=== PATIENT | male | born 1935 | race African-American/Black ===

== ENCOUNTER → 2017-01-04 | Outpatient (CLI) | payer MEDICARE, OTHER ==
[2017-01-04 10:00] LABS: HEMATOCRIT 36.7 % (37.9-51.0); HEMOGLOBIN 12.1 g/dL (13.5-17.0); HGB HCT DIFFERENCE -0.4; MEAN CORPUSCULAR HEMOGLOBIN 29.1 pg (27.0-33.4); MEAN CORPUSCULAR HGB CONC 32.9 g/dL (32.0-36.0); MEAN CORPUSCULAR VOLUME 88 fl (80-97); RED BLOOD COUNT 4.16 10^6/uL (4.35-5.55); WHITE BLOOD COUNT 4.9 10^3/uL (4.0-10.5)
[2017-01-04 10:20] LABS: ANION GAP 13 (5-19); BLOOD UREA NITROGEN 17 mg/dL (7-20); CALCIUM 9.8 mg/dL (8.4-10.2); CARBON DIOXIDE 24 mmol/L (22-30); CHLORIDE 103 mmol/L (98-107); CREATININE RESULT 1.16 mg/dL (0.52-1.25); GLUCOSE 83 mg/dL (75-110); POTASSIUM 4.2 mmol/L (3.6-5.0); SODIUM 139.9 mmol/L (137-145)
== END ==
LOC: OD 09:18
PROVIDERS: ATTEND Internal Medicine Nephrology
DX: I12.9 Hypertensive chronic kidney disease with stage 1 through stage 4 chronic kidney disease, or unspecified chronic kidney disease (principal); N18.2 Chronic kidney disease, stage 2 (mild); R80.9 Proteinuria, unspecified; D64.9 Anemia, unspecified
CPT/HCPCS: 36415; 80048; 82728; 83540; 83550; 85027

== ENCOUNTER → 2017-07-10 | Outpatient (CLI) | payer MEDICARE, OTHER ==
[2017-07-10 13:25] LABS: HEMATOCRIT 36.1 % (37.9-51.0); HEMOGLOBIN 12.1 g/dL (13.5-17.0); HGB HCT DIFFERENCE 0.2; MEAN CORPUSCULAR HEMOGLOBIN 30.3 pg (27.0-33.4); MEAN CORPUSCULAR HGB CONC 33.5 g/dL (32.0-36.0); MEAN CORPUSCULAR VOLUME 90 fl (80-97); WHITE BLOOD COUNT 4.6 10^3/uL (4.0-10.5)
[2017-07-10 13:38] LABS: APPEARANCE,URINE CLEAR; BILIRUBIN,URINE NEGATIVE (NEGATIVE); GLUCOSE, URINE NEGATIVE (NEGATIVE); KETONES,URINE NEGATIVE (NEGATIVE); LEUKOCYTE ESTERASE,URINE NEGATIVE (NEGATIVE); NITRITE,URINE NEGATIVE (NEGATIVE); PROTEIN,URINE 100 mg/dL (NEGATIVE); URINE SPECIFIC GRAVITY 1.014; UROBILINOGEN,URINE NEGATIVE mg/dL (<2.0)
[2017-07-10 13:45] LABS: ANION GAP 12 (5-19); BLOOD UREA NITROGEN 18 mg/dL (7-20); CALCIUM 9.8 mg/dL (8.4-10.2); CARBON DIOXIDE 25 mmol/L (22-30); CHLORIDE 103 mmol/L (98-107); CREATININE RESULT 1.06 mg/dL (0.52-1.25); GLUCOSE 85 mg/dL (75-110); POTASSIUM 4.3 mmol/L (3.6-5.0); SODIUM 140.2 mmol/L (137-145)
[2017-07-11 13:38] LABS: CREATININE URINE 104.5 mg/dL (Not Estab.); MICROALBUMIN URINE 354.7 ug/mL (Not Estab.)
== END ==
LOC: OD 11:56
PROVIDERS: ATTEND Internal Medicine Nephrology
DX: E11.22 Type 2 diabetes mellitus with diabetic chronic kidney disease (principal); N18.2 Chronic kidney disease, stage 2 (mild); R80.9 Proteinuria, unspecified; D64.9 Anemia, unspecified
CPT/HCPCS: 36415; 80048; 81001; 82043; 82570; 82728; 83540; 83550; 85027

== ENCOUNTER 2017-07-29 19:10 | Emergency (ER) | payer MEDICARE, OTHER ==
[2017-07-29] MEDS ORDERED: NORMAL SALINE 1000 ML 500 ML IV ONE (19:39)
[2017-07-29] MEDS ORDERED: ONDANSETRON HCL INJ/PF 4 MG/2 ML SDV IV ONE (19:39)
--- NOTE | 2017-07-29 19:41 | ER Document Report ---
ED General - General Stated Complaint: EPIGASTRIC PAIN Time Seen by Provider: 07/29/17 19:31 Notes: Patient is an 82-year-old male that comes emergency department for chief complaint of pain in his upper abdomen and 2 episodes of vomiting, symptoms started this morning, he also reports of episode of loose stool today. He denies any current symptoms currently except for some nausea, he denies fever or chills, flank pain, chest pain, shortness of breath, hematemesis, hematochezia. He comes by EMS, he is here with his family. Past medical history of CAD, type 2 diabetes, hypertension. He denies any surgeries on his bowel. TRAVEL OUTSIDE OF THE [place] IN LAST 30 DAYS: No - Related Data Allergies/Adverse Reactions: amiodarone [Amiodarone] Allergy (Severe, Verified 06/11/15 11:51) flashbacks Past Medical History - General Information source: Patient - Social History Smoking Status: Never Smoker Frequency of alcohol use: None Drug Abuse: None Lives with: Family Family History: Reviewed & Not Pertinent - Past Medical History Cardiac Medical History: Reports: Hx Coronary Artery Disease, Hx Heart Attack, Hx Hypercholesterolemia, Hx Hypertension Endocrine Medical History: Reports: Hx Diabetes Mellitus Type 2 Psychiatric Medical History: Reports: Hx Depression Past Surgical History: Reports: Hx Abdominal Surgery - hernia, Hx Cardiac Catheterization - stents, Hx Cardiac Surgery - bypass, Hx Coronary Artery Bypass Graft - Immunizations Hx Diphtheria, Pertussis, Tetanus Vaccination: Yes Hx Pneumococcal Vaccination: 07/23/13 Review of Systems - Review of Systems Constitutional: No symptoms reported EENT: No symptoms reported Cardiovascular: No symptoms reported Respiratory: No symptoms reported Gastrointestinal: See HPI Genitourinary: No symptoms reported Male Genitourinary: No symptoms reported Musculoskeletal: No symptoms reported Skin: No symptoms reported Hematologic/Lymphatic: No symptoms reported Neurological/Psychological: No symptoms reported Physical Exam - Vital signs Vitals: Resp BP 27 H 136/92 H 07/29/17 19:22 07/29/17 19:22 Interpretation: Normal - General General appearance: Appears well, Alert In distress: None - HEENT Head: Normocephalic, Atraumatic Eyes: Normal Conjunctiva: Normal Extraocular movements intact: Yes Eyelashes: Normal Pupils: PERRL Mouth/Lips: Normal Mucous membranes: Normal Pharynx: Normal Neck: Normal - Respiratory Respiratory status: No respiratory distress Chest status: Nontender - midline scar on the chest. No: Tender Breath sounds: Normal. No: Decreased air movement, Wheezing Chest palpation: Normal - Cardiovascular Rhythm: Regular. No: Irregularly irregular, Tachycardia Heart sounds: Normal auscultation, S1 appreciated, S2 appreciated Murmur: No - Abdominal Inspection: Normal Distension: No distension Bowel sounds: Normal Tenderness: Tender - some epigastric tenderness, mild generalized tenderness over the remaining abdomen, no scars, no rigidity, no obvious distension, no guarding Organomegaly: No organomegaly - Back Back: Normal, Nontender - Extremities General upper extremity: Normal inspection, Nontender, Normal ROM, Normal strength General lower extremity: Normal inspection, Nontender, Normal ROM, Normal strength. No: Edema - Neurological Neuro grossly intact: Yes Cognition: Normal Orientation: AAOx4 Kristofer Coma Scale Eye Opening: Spontaneous Kristofer Coma Scale Verbal: Oriented Kristofer Coma Scale Motor: Obeys Commands [place] Coma Scale Total: 15 Speech: Normal Motor strength normal: LUE, RUE, LLE, RLE Sensory: Normal - Psychological Associated symptoms: Normal affect, Normal mood - Skin Skin Temperature: Warm Skin Moisture: Dry Skin Color: Normal Course - Re-evaluation Re-evalutation: EKG showing bigeminy, no T-wave inversions or ST segment changes in consecutive leads, there is also some artifact on the EKG. Patient is not having chest pain , he is still reporting some nausea. Chest x-ray unremarkable. CBC unremarkable, chemistry does show elevated potassium at 5.7 and acute renal insufficiency at creatinine of 1.32. This is new compared to prior. Patient given IV fluids. Chemistry was repeated after IV fluids, this has showed normalization of renal functioning and potassium level. Patient able to drink contrast without any difficulty, he was given 4 mg of IV Zofran and afterwards he had no symptoms during the duration of his stay. After drinking contrast on repeat abdominal exam patient is nontender. CT of the abdomen showing no abnormalities. Patient states he feels good and he is asking to leave. Cardiac enzymes were cycled and are negative. The exact cause of patient's vomiting and his episode of diarrhea along with initial upper abdominal pain is unclear, however there is no evidence of acute abdomen, obstruction, ACS, or infection. Patient will be discharged with Zofran, recommendations for follow-up, return precautions, these were discussed with both patient and family members at bedside. They state understanding and agreement. - Vital Signs Vital signs: Temp Pulse Resp BP Pulse Ox 99.6 F 87 20 148/62 H 98 07/29/17 20:20 07/29/17 20:20 07/30/17 01:31 07/30/17 01:31 07/30/17 01:31 - Laboratory Result Diagrams: 07/29/17 19:45 07/30/17 00:15 Laboratory results interpreted by me: 07/29/17 07/29/17 07/29/17 19:45 19:45 21:55 RBC 4.09 L Hgb 12.4 L Hct 37.7 L Seg Neutrophils % 89.3 H Lymphocytes % 5.1 L Absolute Lymphocytes 0.4 L Sodium 134.3 L Potassium 5.7 H BUN 22 H Creatinine 1.32 H Est GFR (Non-Af Amer) 52 L Glucose 197 H Direct Bilirubin 0.5 H Urine Protein 100 H Urine Glucose (UA) 50 H 07/30/17 00:15 RBC Hgb Hct Seg Neutrophils % Lymphocytes % Absolute Lymphocytes Sodium 136.5 L Potassium BUN Creatinine Est GFR (Non-Af Amer) Glucose 137 H Direct Bilirubin Urine Protein Urine Glucose (UA) Discharge - Discharge Clinical Impression: Vomiting and diarrhea Abdominal pain Qualifiers: Abdominal location: upper abdomen, unspecified Qualified Code(s): R10.10 - Upper abdominal pain, unspecified Condition: Stable Disposition: HOME, SELF-CARE Additional Instructions: Your cat scan is normal, your blood chemistry is normal after treatment. Start with bland food (soup, toast, rice, etc), progress to normal food slowly. Take the zofran if needed for nausea. Follow up with your Primary Care this week. Return to the ED for any concerning or worsening symptoms - returned or worsening vomiting, fever, abdominal pain, etc. Prescriptions: Ondansetron [Zofran Odt 4 mg Tablet] 1 tab PO Q4H PRN #12 tab.rapdis PRN Reason: For Nausea/Vomiting
[2017-07-29 19:58] LABS: ABSOLUTE LYMPHOCYTES (AUTO) 0.4 10^3/uL (0.5-4.7); ABSOLUTE MONOCYTES (AUTO) 0.3 10^3/uL (0.1-1.4); ABSOLUTE NEUT (AUTO) 6.3 10^3/uL (1.7-8.2); BASOPHILS % (AUTO) 0.2 % (0-2); EOSINOPHILS % (AUTO) 0.6 % (0-6); HEMATOCRIT 37.7 % (37.9-51.0); HEMOGLOBIN 12.4 g/dL (13.5-17.0); HGB HCT DIFFERENCE -0.5; LYMPHOCYTES % (AUTO) 5.1 % (13-45); MEAN CORPUSCULAR HEMOGLOBIN 30.3 pg (27.0-33.4); MEAN CORPUSCULAR HGB CONC 32.9 g/dL (32.0-36.0); MEAN CORPUSCULAR VOLUME 92 fl (80-97); MONOCYTES % (AUTO) 4.8 % (3-13); RED BLOOD COUNT 4.09 10^6/uL (4.35-5.55); RED CELL DISTRIBUTION WIDTH 13.8 % (11.5-14.0); SEGMENTED NEUTROPHILS % (AUTO) 89.3 % (42-78); WHITE BLOOD COUNT 7.1 10^3/uL (4.0-10.5)
[2017-07-29 20:06] LABS: ALANINE AMINOTRANSFERASE 31 U/L (21-72); ALBUMIN 4.2 g/dL (3.5-5.0); ALKALINE PHOSPHATASE 55 U/L (38-126); ANION GAP 11 (5-19); ASPARTATE AMINO TRANSFERASE 19 U/L (17-59); BILIRUBIN,DIRECT 0.5 mg/dL (0.0-0.4); BILIRUBIN,TOTAL 0.8 mg/dL (0.2-1.3); BLOOD UREA NITROGEN 22 mg/dL (7-20); CALCIUM 9.5 mg/dL (8.4-10.2); CARBON DIOXIDE 24 mmol/L (22-30); CHLORIDE 99 mmol/L (98-107); CREATINE KINASE 145 U/L (55-170); CREATININE RESULT 1.32 mg/dL (0.52-1.25); GLUCOSE 197 mg/dL (75-110); POTASSIUM 5.7 mmol/L (3.6-5.0); SODIUM 134.3 mmol/L (137-145); TOTAL PROTEIN 7.3 g/dL (6.3-8.2)
[2017-07-29 20:18] LABS: CREATINE KINASE MB 3.09 ng/mL (<4.55); TROPONIN I < 0.012 ng/mL
--- NOTE | 2017-07-29 20:20 | RADIOLOGY REPORT (SQ) ---
EXAM DESCRIPTION: CHEST SINGLE VIEW COMPLETED DATE/TIME: 07/29/2017 8:07 pm REASON FOR STUDY: bed 8 epigastric pain COMPARISON: 06/08/2014 EXAM PARAMETERS: NUMBER OF VIEWS: One view. TECHNIQUE: Single frontal radiographic view of the chest acquired. RADIATION DOSE: NA LIMITATIONS: None. FINDINGS: LUNGS AND PLEURA: No opacities, masses or pneumothorax. No pleural effusion. MEDIASTINUM AND HILAR STRUCTURES: No masses. Contour normal. HEART AND VASCULAR STRUCTURES: Heart normal in size. Normal vasculature. BONES: No acute findings. HARDWARE: Lower midline sternal wires which appeared discontiguous, similar to that seen on compariso n imaging. And [place] medical examiner overlies the left lung base; this is of uncertain etiology or s ignificance. OTHER: No other significant finding. IMPRESSION: No evidence of acute cardiopulmonary abnormality. TECHNICAL DOCUMENTATION: JOB ID: [id number]
[2017-07-29] MEDS ORDERED: NORMAL SALINE 1000 ML 1,000 ML IV ONE (20:33)
[2017-07-29 22:44] LABS: APPEARANCE,URINE SLIGHTLY-CLOUDY; BILIRUBIN,URINE NEGATIVE (NEGATIVE); GLUCOSE, URINE 50 mg/dL (NEGATIVE); KETONES,URINE NEGATIVE (NEGATIVE); LEUKOCYTE ESTERASE,URINE NEGATIVE (NEGATIVE); NITRITE,URINE NEGATIVE (NEGATIVE); PROTEIN,URINE 100 mg/dL (NEGATIVE); URINE SPECIFIC GRAVITY 1.025; UROBILINOGEN,URINE NEGATIVE mg/dL (<2.0)
--- NOTE | 2017-07-30 00:06 | RADIOLOGY REPORT (SQ) ---
EXAM DESCRIPTION: CT ABD/PELVIS WITH IV ORAL COMPLETED DATE/TIME: 07/29/2017 11:43 pm REASON FOR STUDY: mid/upper abd pain, vomiting COMPARISON: None. TECHNIQUE: CT scan of the abdomen and pelvis performed using helical scanning technique with dynamic intravenous contrast injection. No oral contrast. Images reviewed with lung, soft tissue, and bone windows. Reconstructed coronal and sagittal MPR images reviewed. Delayed images for evaluation of the urinary system also acquired. All images stored on PACS. All CT scanners at this facility use dose modulation, iterative reconstruction, and/or weight based d osing when appropriate to reduce radiation dose to as low as reasonably achievable (ALARA). [facility]: Dose Right [facility]: CareDose [facility]: Dose Right [facility]: Teradose 4D [facility]: [place] CONTRAST TYPE AND DOSE: contrast/concentration: Isovue 370.00 mg/ml; Total Contrast Delivered: 91.0 ml; Total Saline Delivered: 69.9 ml RENAL FUNCTION: BUN 22; creatinine 1.32 RADIATION DOSE: Up-to-date CT equipment and radiation dose reduction techniques were employed. CTDIv ol: 10.3 - 14.4 mGy. DLP: 1393 mGy-cm.. LIMITATIONS: None. FINDINGS: LOWER CHEST: No significant findings. No nodules or infiltrates. LIVER: Normal size. No masses. No dilated ducts. SPLEEN: Normal size. No focal lesions. PANCREAS: No masses. No significant calcifications. No adjacent inflammation or peripancreatic fluid collections. Pancreatic duct not dilated. GALLBLADDER: No identified stones by CT criteria. No inflammatory changes to suggest cholecystitis. ADRENAL GLANDS: No significant masses or asymmetry. RIGHT KIDNEY AND URETER: No solid masses. No significant calcifications. No hydronephrosis or hyd roureter. LEFT KIDNEY AND URETER: No solid masses. No significant calcifications. No hydronephrosis or hydr oureter. AORTA AND VESSELS: No aneurysm. No dissection. Calcified and noncalcified atherosclerotic plaque are present. RETROPERITONEUM: No retroperitoneal adenopathy, hemorrhage or masses. BOWEL AND PERITONEAL CAVITY: No masses or inflammatory changes. No free fluid or peritoneal masses. APPENDIX: Not visualized. PELVIS: No mass. No free fluid. Normal bladder. ABDOMINAL WALL: No masses. No hernias. BONES: No significant or acute findings. OTHER: No other significant finding. IMPRESSION: No evidence of acute intra-abdominal infectious/ inflammatory process to correlate to th e patient's presenting symptoms. TECHNICAL DOCUMENTATION: JOB ID: [id number] Quality ID # [id number]: Final reports with documentation of one or more dose reduction techniques (e.g., Au tomated exposure control, adjustment of the mA and/or kV according to patient size, use of iterative reconstruction technique) 2010 [email or web address]- All Rights Reserved
[2017-07-30 00:39] LABS: ANION GAP 14 (5-19); BLOOD UREA NITROGEN 20 mg/dL (7-20); CALCIUM 8.4 mg/dL (8.4-10.2); CARBON DIOXIDE 22 mmol/L (22-30); CHLORIDE 101 mmol/L (98-107); CREATININE RESULT 1.11 mg/dL (0.52-1.25); GLUCOSE 137 mg/dL (75-110); SODIUM 136.5 mmol/L (137-145)
[2017-07-30 00:50] LABS: POTASSIUM 4.6 mmol/L (3.6-5.0)
[2017-07-30] MEDS ORDERED: ONDANSETRON ODT 4 MG TAB (6 TAB/DSPK) PO PRN (01:02)
[2017-07-30 01:58] VITALS: BP 148/62
--- NOTE | 2017-07-31 06:26 | EKG REPORT ---
SEVERITY:- ABNORMAL ECG - WANDERING PACEMAKER SUPRAVENTRICULAR BIGEMINY PROBABLE LEFT ATRIAL ABNORMALITY ABNORMAL T, CONSIDER ISCHEMIA, LATERAL LEADS : Confirmed by: Mimi Frost MD 31-Jul-2017 06:25:01
== END 2017-07-30 01:50 | disposition home or self-care (01) ==
LOC: ER 19:10
DX: R11.10 Vomiting, unspecified (principal); R19.7 Diarrhea, unspecified; R10.13 Epigastric pain
CPT/HCPCS: 93005; 99285; 96361; 96374; 36415; 82553; 82550; 83690; 85025; 80048; 80053; 81001; 84484; 71010; 74177; 93010; J2405; J7030; A9270

== ENCOUNTER → 2017-12-25 | Outpatient (CLI) | payer MEDICARE, OTHER ==
[2017-12-25 11:10] LABS: HEMOGLOBIN 12.2 g/dL (13.5-17.0); MEAN CORPUSCULAR HEMOGLOBIN 29.9 pg (27.0-33.4); MEAN CORPUSCULAR VOLUME 91 fl (80-97); PLATELET COUNT 254 10^3/uL (150-450); RED BLOOD COUNT 4.08 10^6/uL (4.35-5.55); RED CELL DISTRIBUTION WIDTH 13.8 % (11.5-14.0); WHITE BLOOD COUNT 4.8 10^3/uL (4.0-10.5)
[2017-12-25 11:22] LABS: APPEARANCE,URINE CLEAR; BILIRUBIN,URINE NEGATIVE (NEGATIVE); COLOR,URINE YELLOW; GLUCOSE, URINE NEGATIVE (NEGATIVE); KETONES,URINE NEGATIVE (NEGATIVE); LEUKOCYTE ESTERASE,URINE NEGATIVE (NEGATIVE); NITRITE,URINE NEGATIVE (NEGATIVE); PROTEIN,URINE 30 mg/dL (NEGATIVE); URINE SPECIFIC GRAVITY 1.015
[2017-12-25 11:41] LABS: ANION GAP 13 (5-19); BLOOD UREA NITROGEN 21 mg/dL (7-20); CALCIUM 10.1 mg/dL (8.4-10.2); CARBON DIOXIDE 28 mmol/L (22-30); CHLORIDE 101 mmol/L (98-107); GLUCOSE 86 mg/dL (75-110); POTASSIUM 4.4 mmol/L (3.6-5.0); SODIUM 141.8 mmol/L (137-145)
[2017-12-25 12:00] LABS: UR PRO/CREAT RATIO RESULT 0.5 mg/mg (0.0-0.2); URINE CREATININE 145.1 mg/dL (22-328)
== END ==
LOC: OD 09:56
PROVIDERS: ATTEND Internal Medicine Nephrology
DX: I12.9 Hypertensive chronic kidney disease with stage 1 through stage 4 chronic kidney disease, or unspecified chronic kidney disease (principal); N18.2 Chronic kidney disease, stage 2 (mild); E11.9 Type 2 diabetes mellitus without complications; R80.9 Proteinuria, unspecified; D64.9 Anemia, unspecified
CPT/HCPCS: 36415; 80048; 81001; 82570; 84156; 85027

== ENCOUNTER 2018-06-17 13:20 | Emergency (ER) | payer MEDICARE, OTHER ==
--- NOTE | 2018-06-17 14:02 | RADIOLOGY REPORT (SQ) ---
EXAM DESCRIPTION: CT HEAD WITHOUT COMPLETED DATE/TIME: 06/17/2018 1:51 pm REASON FOR STUDY: Fall, Struck head COMPARISON: 06/11/2015. TECHNIQUE: Axial images acquired through the brain without intravenous contrast. Images reviewed wi th bone, brain and subdural windows. Additional sagittal and coronal reconstructions were generated. Images stored on PACS. All CT scanners at this facility use dose modulation, iterative reconstruction, and/or weight based d osing when appropriate to reduce radiation dose to as low as reasonably achievable (ALARA). [facility]: Dose Right [facility]: CareDose [facility]: Dose Right [facility]: Teradose 4D [facility]: Backpack RADIATION DOSE: CT Rad equipment meets quality standard of care and radiation dose reduction techniq ues were employed. CTDIvol: 53.2 mGy. DLP: 1017 mGy-cm. mGy. LIMITATIONS: None. FINDINGS: VENTRICLES: Prominent. CEREBRUM: No masses. No hemorrhage. No midline shift. Areas of low density in the white matter mos t likely due to chronic micro-vascular ischemic change. Chronic basal ganglia calcifications. No ev idence for acute infarction. CEREBELLUM: No masses. No hemorrhage. No alteration of density. No evidence for acute infarction. EXTRAAXIAL SPACES: Mild age-related involutional change. No fluid collections. No masses. ORBITS AND GLOBE: No intra- or extraconal masses. Normal contour of globe without masses. CALVARIUM: No fracture. PARANASAL SINUSES: No fluid or mucosal thickening. SOFT TISSUES: No mass or hematoma. OTHER: No other significant finding. IMPRESSION: MILD CHRONIC CHANGES OF ATROPHY AND MICROVASCULAR ISCHEMIA. NO ACUTE PROCESS. EVIDENCE OF ACUTE STROKE: NO. TECHNICAL DOCUMENTATION: JOB ID: [id number] Quality ID # 436: Final reports with documentation of one or more dose reduction techniques (e.g., Au tomated exposure control, adjustment of the mA and/or kV according to patient size, use of iterative reconstruction technique) 2010 [employer]- All Rights Reserved Reading location - IP/workstation name: [email or web address]
--- NOTE | 2018-06-17 14:13 | RADIOLOGY REPORT (SQ) ---
EXAM DESCRIPTION: CT CERVICAL SPINE WITHOUT COMPLETED DATE/TIME: 06/17/2018 1:51 pm REASON FOR STUDY: Fall, Struck head COMPARISON: 06/11/2015. TECHNIQUE: Axial images acquired through the cervical spine without intravenous contrast. Images re viewed with lung, soft tissue and bone windows. Reconstructed coronal and sagittal MPR images review ed. Images stored on PACS. All CT scanners at this facility use dose modulation, iterative reconstruction, and/or weight based d osing when appropriate to reduce radiation dose to as low as reasonably achievable (ALARA). [facility]: Dose Right [facility]: CareDose [facility]: Dose Right [facility]: Teradose 4D [facility]: [employer] RADIATION DOSE: CT Rad equipment meets quality standard of care and radiation dose reduction techniq ues were employed. CTDIvol: 21.6 mGy. DLP: 439 mGy-cm. mGy. LIMITATIONS: None. FINDINGS: ALIGNMENT: Anatomic. MINERALIZATION: Normal. VERTEBRAL BODIES: No fractures or dislocation. DISCS: Multilevel disc space narrowing with osteophytes. FACETS, LATERAL MASSES, POSTERIOR ELEMENTS: Facet arthropathy. No fractures. No dislocation. No ac daniel findings. HARDWARE: None in the spine. VISUALIZED RIBS: No fractures. LUNG APICES AND SOFT TISSUES: No significant or acute findings. OTHER: No other significant finding. IMPRESSION: CHRONIC DEGENERATIVE CHANGES. NO ACUTE FINDINGS. TECHNICAL DOCUMENTATION: JOB ID: [id number] Quality ID # 436: Final reports with documentation of one or more dose reduction techniques (e.g., Au tomated exposure control, adjustment of the mA and/or kV according to patient size, use of iterative reconstruction technique) 2010 [employer]- All Rights Reserved Reading location - IP/workstation name: [email or web address]
[2018-06-17] MEDS ORDERED: ACETAMINOPHEN 325 MG TABLET PO ONE (14:25)
--- NOTE | 2018-06-17 15:44 | ER Document Report ---
ED Medical Screen (RME) - General Chief Complaint: Fall Stated Complaint: FALL/HEAD INJURY Time Seen by Provider: 06/17/18 14:20 Mode of Arrival: Ambulatory Information source: Patient TRAVEL OUTSIDE OF THE [place] IN LAST 30 DAYS: No - HPI Patient complains to provider of: Fall Onset: Just prior to arrival - A 3-year-old man who presents for evaluation after having a mechanical fall while in [place], he did hit his face against some carpet on the floor, he did not lose consciousness was able to get up thereafter has been able to walk has no focal numbness or weakness. Denies any previous similar episodes, does not currently take any blood thinning medications. Denies any prodrome prior to his fall states that it was because the carpet was heaped up on the edge. - Related Data Allergies/Adverse Reactions: amiodarone [Amiodarone] Allergy (Severe, Verified 06/11/15 11:51) flashbacks Past Medical History - General Information source: Patient, Relative - Past Medical History Cardiac Medical History: Reports: Hx Coronary Artery Disease, Hx Heart Attack, Hx Hypercholesterolemia, Hx Hypertension Endocrine Medical History: Reports: Hx Diabetes Mellitus Type 1, Hx Diabetes Mellitus Type 2 Psychiatric Medical History: Reports: Hx Depression Past Surgical History: Reports: Hx Abdominal Surgery - hernia, Hx Cardiac Catheterization - stents, Hx Cardiac Surgery - bypass, Hx Coronary Artery Bypass Graft - Immunizations Hx Diphtheria, Pertussis, Tetanus Vaccination: Yes Review of Systems - Review of Systems -: Yes All other systems reviewed and negative Physical Exam - Vital signs Vitals: Temp Pulse Resp BP Pulse Ox 98.1 F 63 14 141/60 H 98 06/17/18 13:34 06/17/18 13:34 06/17/18 13:34 06/17/18 13:34 06/17/18 13:34 - General General appearance: Appears well In distress: None - HEENT Head: Normocephalic Eyes: Normal Conjunctiva: Normal Pupils: PERRL Ears: Normal External canal: Normal Tympanic membrane: Normal - Respiratory Respiratory status: No respiratory distress Chest status: Nontender Breath sounds: Normal Chest palpation: Normal - Cardiovascular Rhythm: Regular Heart sounds: Normal auscultation Murmur: No - Abdominal Inspection: Normal - Back Back: Normal - Extremities General upper extremity: Normal inspection, Normal ROM General lower extremity: Normal inspection, Normal ROM - Neurological Neuro grossly intact: Yes Cognition: Normal Orientation: AAOx4 Kristofer Coma Scale Eye Opening: Spontaneous Kristofer Coma Scale Verbal: Oriented [place] Coma Scale Motor: Obeys Commands Kristof[place] Coma Scale Total: 15 Course - Re-evaluation Re-evalutation: 06/17/18 21:32 Prior to evaluation this patient underwent CT imaging of his head as well as cervical spine, both of these were negative. Patient had a couple of scratches on the face without any obvious injury otherwise. Given his otherwise well appearance ability to ambulate normal neurologic examination will plan to defer any further testing at this time. Patient did a mechanical fall, will be encouraged to utilize assistance with ambulation as necessary moving forward. Patient to be discharged with return precautions in the care of his . - Vital Signs Vital signs: Temp Pulse Resp BP Pulse Ox 98.1 F 65 16 129/62 H 100 06/17/18 13:34 06/17/18 14:00 06/17/18 14:00 06/17/18 14:00 06/17/18 14:00 Doctor's Discharge - Discharge Clinical Impression: Abrasion Fall Qualifiers: Encounter type: initial encounter Qualified Code(s): W19.XXXA - Unspecified fall, initial encounter Condition: Good Disposition: HOME, SELF-CARE Instructions: Abrasions of the Face ([facility]) Referrals: Mis BARBA MD [Primary Care Provider] - Follow up as needed
[2018-06-17 16:17] VITALS: BP 129/62
== END 2018-06-17 14:40 | disposition home or self-care (01) ==
LOC: ER 13:20
DX: S00.81XA Abrasion of other part of head, initial encounter (principal); W01.0XXA Fall on same level from slipping, tripping and stumbling without subsequent striking against object, initial encounter; Y92.22 Religious institution as the place of occurrence of the external cause; I25.10 Atherosclerotic heart disease of native coronary artery without angina pectoris; I10 Essential (primary) hypertension; E11.9 Type 2 diabetes mellitus without complications; Z88.8 Allergy status to other drugs, medicaments and biological substances
CPT/HCPCS: 99283; 70450; 72125; A9270

== ENCOUNTER → 2018-06-27 | Outpatient (CLI) | payer MEDICARE, OTHER ==
[2018-06-27 13:36] LABS: APPEARANCE,URINE CLEAR; BILIRUBIN,URINE NEGATIVE (NEGATIVE); COLOR,URINE YELLOW; GLUCOSE, URINE 150 mg/dL (NEGATIVE); KETONES,URINE NEGATIVE (NEGATIVE); LEUKOCYTE ESTERASE,URINE NEGATIVE (NEGATIVE); NITRITE,URINE NEGATIVE (NEGATIVE); PROTEIN,URINE 100 mg/dL (NEGATIVE); URINE SPECIFIC GRAVITY 1.018
[2018-06-27 13:52] LABS: HEMATOCRIT 36.3 % (37.9-51.0); MEAN CORPUSCULAR HEMOGLOBIN 29.9 pg (27.0-33.4); MEAN CORPUSCULAR HGB CONC 33.1 g/dL (32.0-36.0); MEAN CORPUSCULAR VOLUME 90 fl (80-97); PLATELET COUNT 256 10^3/uL (150-450); RED BLOOD COUNT 4.03 10^6/uL (4.35-5.55); RED CELL DISTRIBUTION WIDTH 13.8 % (11.5-14.0); WHITE BLOOD COUNT 3.9 10^3/uL (4.0-10.5)
[2018-06-27 13:56] LABS: ANION GAP 14 (5-19); BLOOD UREA NITROGEN 19 mg/dL (7-20); CALCIUM 9.5 mg/dL (8.4-10.2); CARBON DIOXIDE 25 mmol/L (22-30); CHLORIDE 100 mmol/L (98-107); GLUCOSE 177 mg/dL (75-110); IRON(TIBC) 82.8 ug/dL (49-181); POTASSIUM 4.6 mmol/L (3.6-5.0); SODIUM 139.4 mmol/L (137-145)
[2018-06-27 14:11] LABS: UR PRO/CREAT RATIO RESULT 0.6 mg/mg (0.0-0.2); URINE CREATININE 146.8 mg/dL (22-328); URINE PROTEIN 93.2 mg/dL (<12)
== END ==
LOC: OD 12:36
PROVIDERS: ATTEND Internal Medicine Nephrology
DX: N18.2 Chronic kidney disease, stage 2 (mild) (principal); D64.9 Anemia, unspecified; I12.9 Hypertensive chronic kidney disease with stage 1 through stage 4 chronic kidney disease, or unspecified chronic kidney disease; E11.22 Type 2 diabetes mellitus with diabetic chronic kidney disease; R80.9 Proteinuria, unspecified
CPT/HCPCS: 36415; 80048; 81001; 82570; 82728; 83540; 83550; 84156; 85027

== ENCOUNTER 2018-09-19 14:14 | Emergency (ER) | payer MEDICARE ==
[2018-09-19 15:42] LABS: INTERNATIONAL RATION (INR) 1.02
[2018-09-19 15:43] LABS: PARTIAL THROMBOPLASTIN TIME 30.9 SEC (23.5-35.8)
[2018-09-19 15:47] LABS: ABSOLUTE EOSINOPHILS # (AUTO) 0.1 10^3/uL (0.0-0.6); ABSOLUTE LYMPHOCYTES (AUTO) 1.7 10^3/uL (0.5-4.7); ABSOLUTE MONOCYTES (AUTO) 0.6 10^3/uL (0.1-1.4); ABSOLUTE NEUT (AUTO) 3.8 10^3/uL (1.7-8.2); BASOPHILS % (AUTO) 0.6 % (0-2); EOSINOPHILS % (AUTO) 1.6 % (0-6); HEMATOCRIT 37.9 % (37.9-51.0); HEMOGLOBIN 12.7 g/dL (13.5-17.0); MEAN CORPUSCULAR HEMOGLOBIN 29.9 pg (27.0-33.4); MEAN CORPUSCULAR HGB CONC 33.5 g/dL (32.0-36.0); MEAN CORPUSCULAR VOLUME 89 fl (80-97); MONOCYTES % (AUTO) 9.4 % (3-13); PLATELET COUNT 293 10^3/uL (150-450); RED BLOOD COUNT 4.25 10^6/uL (4.35-5.55); RED CELL DISTRIBUTION WIDTH 13.9 % (11.5-14.0); SEGMENTED NEUTROPHILS % (AUTO) 60.4 % (42-78); TOTAL CELLS COUNTED % (AUTO) 100 %; WHITE BLOOD COUNT 6.2 10^3/uL (4.0-10.5)
[2018-09-19 15:54] LABS: ALANINE AMINOTRANSFERASE 17 U/L (21-72); ALBUMIN 4.3 g/dL (3.5-5.0); ALKALINE PHOSPHATASE 57 U/L (38-126); ANION GAP 15 (5-19); ASPARTATE AMINO TRANSFERASE 27 U/L (17-59); BILIRUBIN,DIRECT 0.2 mg/dL (0.0-0.4); BILIRUBIN,TOTAL 0.4 mg/dL (0.2-1.3); BLOOD UREA NITROGEN 18 mg/dL (7-20); CALCIUM 9.5 mg/dL (8.4-10.2); CARBON DIOXIDE 24 mmol/L (22-30); CHLORIDE 100 mmol/L (98-107); CREATINE KINASE 448 U/L (55-170); GLUCOSE 172 mg/dL (75-110); POTASSIUM 4.8 mmol/L (3.6-5.0); SODIUM 139.4 mmol/L (137-145)
[2018-09-19 15:55] LABS: CREATINE KINASE MB 1.76 ng/mL (<4.55); TROPONIN I 0.013 ng/mL
--- NOTE | 2018-09-19 15:56 | RADIOLOGY REPORT (SQ) ---
EXAM DESCRIPTION: CT HEAD WITHOUT COMPLETED DATE/TIME: 09/19/2018 3:39 pm REASON FOR STUDY: Stroke like symptoms right-sided weakness COMPARISON: CT BRAIN 06/17/2018, 06/11/2015, 10/10/2014, 09/07/2008 TECHNIQUE: Axial images acquired through the brain without intravenous contrast. Images reviewed wi th bone, brain and subdural windows. Additional sagittal and coronal reconstructions were generated. Images stored on PACS. All CT scanners at this facility use dose modulation, iterative reconstruction, and/or weight based d osing when appropriate to reduce radiation dose to as low as reasonably achievable (ALARA). [facility]: Dose Right [facility]: CareDose [facility]: Dose Right [facility]: Teradose 4D [facility]: [place] RADIATION DOSE: CT Rad equipment meets quality standard of care and radiation dose reduction techniq ues were employed. CTDIvol: 53.2 mGy. DLP: 1017 mGy-cm. mGy. LIMITATIONS: None. FINDINGS: VENTRICLES: Normal size and contour. CEREBRUM: No CT evidence of acute large territory ischemic change, acute intracranial hemorrhage, mas s effect or midline shift. There is moderate small vessel ischemic change with spotty low attenuation in the bifrontal and biparietal hemispheric white matter with lacunar infarcts in the bilateral basa l ganglia. Bilateral benign basal ganglia calcifications are present CEREBELLUM: Punctate lacunar infarct right cerebellar hemisphere axial image 11 unchanged from previo us studies. No definite CT evidence of posterior fossa acute ischemic change, acute hemorrhage mass effect or midline shift EXTRAAXIAL SPACES: No fluid collections. No masses. ORBITS AND GLOBE: No intra- or extraconal masses. Post bilateral cataract surgery. CALVARIUM: No fracture. PARANASAL SINUSES: No fluid or mucosal thickening. SOFT TISSUES: No mass or hematoma. OTHER: No other significant finding. IMPRESSION: No acute findings EVIDENCE OF ACUTE STROKE: NO. COMMENT: Pertinent findings on the imaging study reported as a CRITICAL RESULT to Dr Kay at15:40 o n 09/19/2018. Category of Critical Result: CT code stroke Quality ID # 436: Final reports with documentation of one or more dose reduction techniques (e.g., Au tomated exposure control, adjustment of the mA and/or kV according to patient size, use of iterative reconstruction technique) TECHNICAL DOCUMENTATION: JOB ID: [id number] [email or web address]- All Rights Reserved Reading location - IP/workstation name: [email or web address]
--- NOTE | 2018-09-19 15:57 | RADIOLOGY REPORT (SQ) ---
EXAM DESCRIPTION: CHEST SINGLE VIEW COMPLETED DATE/TIME: 09/19/2018 3:44 pm REASON FOR STUDY: Stroke like symptoms COMPARISON: Chest films 07/29/2017, 06/08/2014 EXAM PARAMETERS: NUMBER OF VIEWS: One view. TECHNIQUE: Single frontal radiographic view of the chest acquired. RADIATION DOSE: NA LIMITATIONS: None. FINDINGS: LUNGS AND PLEURA: No opacities, masses or pneumothorax. No pleural effusion. MEDIASTINUM AND HILAR STRUCTURES: No masses. Contour normal. HEART AND VASCULAR STRUCTURES: Heart normal in size. Normal vasculature. BONES: No acute findings. HARDWARE: Implanted cardiac monitoring device over the anterior left chest. Fractured lower midline sternotomy wires OTHER: No other significant finding. IMPRESSION: No acute findings TECHNICAL DOCUMENTATION: JOB ID: [id number] [employer]- All Rights Reserved Reading location - IP/workstation name: [email or web address]
[2018-09-19 16:17] LABS: APPEARANCE,URINE SLIGHTLY-CLOUDY; BILIRUBIN,URINE NEGATIVE (NEGATIVE); COLOR,URINE YELLOW; GLUCOSE, URINE >=500 mg/dL (NEGATIVE); KETONES,URINE NEGATIVE (NEGATIVE); LEUKOCYTE ESTERASE,URINE NEGATIVE (NEGATIVE); NITRITE,URINE NEGATIVE (NEGATIVE); PROTEIN,URINE >=500 mg/dL (NEGATIVE)
--- NOTE | 2018-09-19 16:47 | ER Document Report ---
ED General - General Chief Complaint: Fall Injury Stated Complaint: FALL Time Seen by Provider: 09/19/18 15:32 Mode of Arrival: Ambulatory Information source: Patient, Relative Notes: Patient is an 83-year-old male was brought into emergency room by his with complaint of not acting right. states that patient fell out of bed 2 nights ago and said he did not hit his head. She looked for any sign of bruising or bleeding and there was none he went back to bed and appeared normal the next morning. Today however patient started acting different to her. She states that he could not ambulate very well that he felt exceptionally weak and he went and laid on the couch and then he urinated on his pants before he can make it to the bathroom which never happens. She also states that he seems to be a little bit slower in his responses. TRAVEL OUTSIDE OF THE [place] IN LAST 30 DAYS: No - HPI Onset: Other - 10 AM Onset/Duration: Gradual, Better Quality of pain: Achy Severity: Mild Pain Level: 1 Associated symptoms: denies: Headache, Leg swelling Exacerbated by: Denies Relieved by: Denies Similar symptoms previously: No Recently seen / treated by doctor: No - Related Data Allergies/Adverse Reactions: amiodarone [Amiodarone] Allergy (Severe, Verified 09/19/18 14:15) flashbacks Past Medical History - General Information source: Patient, Relative - Social History Smoking Status: Former Smoker Cigarette use (# per day): No Chew tobacco use (# tins/day): No Smoking Education Provided: No Frequency of alcohol use: None Drug Abuse: None Family History: Reviewed & Not Pertinent Patient has suicidal ideation: No Patient has homicidal ideation: No - Past Medical History Cardiac Medical History: Reports: Hx Coronary Artery Disease, Hx Heart Attack, Hx Hypercholesterolemia, Hx Hypertension Endocrine Medical History: Reports: Hx Diabetes Mellitus Type 1, Hx Diabetes Mellitus Type 2 Renal/ Medical History: Denies: Hx Peritoneal Dialysis Psychiatric Medical History: Reports: Hx Depression Past Surgical History: Reports: Hx Abdominal Surgery - hernia, Hx Cardiac Catheterization - stents, Hx Cardiac Surgery - bypass, Hx Coronary Artery Bypass Graft - Immunizations Hx Diphtheria, Pertussis, Tetanus Vaccination: Yes Hx Pneumococcal Vaccination: 07/23/13 Review of Systems - Review of Systems Constitutional: No symptoms reported EENT: No symptoms reported Cardiovascular: No symptoms reported Respiratory: No symptoms reported Gastrointestinal: No symptoms reported Genitourinary: No symptoms reported Male Genitourinary: No symptoms reported Musculoskeletal: No symptoms reported Skin: No symptoms reported Hematologic/Lymphatic: No symptoms reported Neurological/Psychological: See HPI, Weakness -: Yes All other systems reviewed and negative Physical Exam - Vital signs Vitals: Resp Pulse Ox 20 97 09/19/18 15:12 09/19/18 15:12 Interpretation: Hypertensive Notes: Patient's vital signs had not been totally charted on the chart prior to me doing this dictation. But patient had been slightly hypertensive between 178/ 80 and 160/75. Was last one that I saw. Patient's heart rate is 71 and his sinus rhythm on the monitor. PHYSICAL EXAMINATION: GENERAL: Patient is a well-nourished well-developed 83-year-old male who is in no apparent distress on physical exam. Patient's neurologic exam and NIH scale was 1. Occasionally he had a little thought process that may have been a little off but by that I mean slow. But he is been able to answer every question effectively and proficiently. HEAD: Atraumatic, normocephalic. EYES: Pupils equal round and reactive to light, extraocular movements intact, sclera anicteric, conjunctiva are normal. ENT: Nares patent, oropharynx clear without exudates. Moist mucous membranes. NECK: Normal range of motion, supple without lymphadenopathy examination of patient's neck shows he got full range of motion but he has some mild tenderness to palpation. LUNGS: Breath sounds clear to auscultation bilaterally and equal. No wheezes rales or rhonchi. HEART: Regular rate and rhythm without murmurs ABDOMEN: Soft, nontender, nondistended abdomen. No guarding, no rebound. No masses appreciated. Musculoskeletal: Normal range of motion, no pitting or edema. No cyanosis. DTRs were normal. Patient's vascular exam lower extremities also showed good pulses on the dorsalis pedis as well as the popliteal and the femorals. NEUROLOGICAL: Cranial nerves grossly intact. Normal speech, normal gait. Normal sensory, motor exams as stated patient's neurologic exam is intact his NIH scale was 1. Patient was able to ambulate without any restrictions with the exception of he walks with a cane and normal ambulation and as per . PSYCH: Normal mood, normal affect. SKIN: Warm, Dry, normal turgor, no rashes or lesions noted. Course - Re-evaluation Re-evalutation: 09/19/18 20:33 Patient course was really uneventful. Throughout his entire stay here patient did seem to get slightly better after he received some fluids. His CT of the head was negative his CT of the C-spine was negative his EKG had no changes in it his troponin was normal baseline 0.013 and that is been everyone's baseline today. He has had no chest pain and no shortness of breath. The urination on himself we cannot explain his urine was clean and patient does feel like he had to go home and could make it. I have had a long discussion with the and I have offered to get him admitted does not not want to be admitted and the states that tomorrow is her birthday and she really wants to take him home they been 52 years and he wants to be home for her birthday. She states that she will bring him back if he has any other change in his mental status. I have instructed him that I can have him admitted and observed tonight but they both are in agreement they want to go home. Given the findings are all negative I have no hesitancy and allowing them to do so. So we are running the second troponin and if that comes back negative as well we will discharge patient home in the custody of his and she will return if there is any significant changes. Patient's repeat troponin was less than the original one I it was a down to 0.012. Patient still feeling good neurologically he is intact is awake alert and oriented x4. He is ready for discharge. 09/19/18 21:27 - Vital Signs Vital signs: Temp Pulse Resp BP Pulse Ox 64 14 174/59 H 100 09/19/18 18:03 09/19/18 21:01 09/19/18 21:01 09/19/18 21:01 - Laboratory Result Diagrams: 09/19/18 15:15 09/19/18 15:30 Laboratory results interpreted by me: 09/19/18 09/19/18 09/19/18 15:15 15:29 15:30 RBC 4.25 L Hgb 12.7 L Creatinine 1.49 H Est GFR ( Amer) 55 L Est GFR (Non-Af Amer) 45 L Glucose 172 H POC Glucose 145 H ALT 17 L Creatine Kinase 448 H Urine Protein Urine Glucose (UA) Urine Urobilinogen 09/19/18 15:55 RBC Hgb Creatinine Est GFR ( Amer) Est GFR (Non-Af Amer) Glucose POC Glucose ALT Creatine Kinase Urine Protein >=500 H Urine Glucose (UA) >=500 H Urine Urobilinogen 2.0 H Discharge - Discharge Clinical Impression: Weakness, Dehydration Condition: Stable Disposition: HOME, SELF-CARE Instructions: Dehydration ([facility]) Additional Instructions: Home and rest. Increase fluids for the next 24-48 hours. Continue your current medications. Monitor patient throughout the evening. Waking him up in a couple hours to make sure he is acting his normal self. As we discussed if you notice any changes in his behavior at all bring him back to ER for a recheck and possible admission. Given that he is neurologically intact right now he is acting normal for himself and he both have agreed that she want to go home just understand that you should return if anything at all changes. Forms: Elevated Blood Pressure Referrals: Mis BARBA MD [Primary Care Provider] - Follow up as needed
--- NOTE | 2018-09-19 18:01 | RADIOLOGY REPORT (SQ) ---
EXAM DESCRIPTION: HAND BILATERAL 3 VIEWS COMPLETED DATE/TIME: 09/19/2018 5:40 pm REASON FOR STUDY: pain after fall COMPARISON: None. EXAM PARAMETERS: NUMBER OF VIEWS: Three views. TECHNIQUE: AP, lateral and oblique radiographic images acquired of the right and left hand. LIMITATIONS: None. FINDINGS: MINERALIZATION: Normal. BONES: No acute fracture or dislocation. No worrisome bone lesions. JOINTS: No effusions. SOFT TISSUES: No soft tissue swelling. No foreign body. OTHER: No other significant finding. IMPRESSION: NEGATIVE STUDY OF THE RIGHT AND LEFT HANDS. NO RADIOGRAPHIC EVIDENCE OF ACUTE INJURY. TECHNICAL DOCUMENTATION: JOB ID: [id number] [employer] All Rights Reserved Reading location - IP/workstation name: [email or web address]
[2018-09-19] MEDS ORDERED: NORMAL SALINE 1000 ML 1,000 ML IV ONE (18:14)
--- NOTE | 2018-09-19 18:23 | RADIOLOGY REPORT (SQ) ---
EXAM DESCRIPTION: CT CERVICAL SPINE WITHOUT COMPLETED DATE/TIME: 09/19/2018 6:09 pm REASON FOR STUDY: fall pain posterior c spine COMPARISON: 06/17/2018 TECHNIQUE: Axial images acquired through the cervical spine without intravenous contrast. Images re viewed with lung, soft tissue and bone windows. Reconstructed coronal and sagittal MPR images review ed. Images stored on PACS. All CT scanners at this facility use dose modulation, iterative reconstruction, and/or weight based d osing when appropriate to reduce radiation dose to as low as reasonably achievable (ALARA). [facility]: Dose Right [facility]: CareDose [facility]: Dose Right [facility]: Teradose 4D [facility]: Smart [employer] RADIATION DOSE: CT Rad equipment meets quality standard of care and radiation dose reduction techniq ues were employed. CTDIvol: 21.6 mGy. DLP: 499 mGy-cm. mGy. LIMITATIONS: None. FINDINGS: ALIGNMENT: There is mild cervical kyphosis. MINERALIZATION: Normal. VERTEBRAL BODIES: No fractures or dislocation. DISCS: Disc spaces are narrowed from C3 to C7. Anterior and posterior osteophytes are present. FACETS, LATERAL MASSES, POSTERIOR ELEMENTS: Hypertrophic facet changes are present in the upper to mi d cervical spine on the right and in the mid to lower cervical spine on the left. HARDWARE: None in the spine. VISUALIZED RIBS: No fractures. LUNG APICES AND SOFT TISSUES: There is mild pleural/ parenchymal scarring in the apices. OTHER: No other significant finding. IMPRESSION: Mild cervical kyphosis. Multilevel degenerative disc disease, spondylosis, and facet ar thropathy. No acute findings. TECHNICAL DOCUMENTATION: JOB ID: [id number] Quality ID # [id number]: Final reports with documentation of one or more dose reduction techniques (e.g., Au tomated exposure control, adjustment of the mA and/or kV according to patient size, use of iterative reconstruction technique) 2010 [employer]- All Rights Reserved Reading location - IP/workstation name: [email or web address]
--- NOTE | 2018-09-19 19:02 | EKG REPORT ---
SEVERITY:- ABNORMAL ECG - SINUS RHYTHM SUPRAVENTRICULAR BIGEMINY NONSPECIFIC T ABNORMALITIES, LATERAL LEADS : Confirmed by: Alli Franklin MD 19-Sep-2018 19:01:51
[2018-09-19 21:10] VITALS: BP 174/59
--- NOTE | 2018-09-20 07:44 | EKG REPORT ---
SEVERITY:- ABNORMAL ECG - SINUS RHYTHM MULTIPLE ATRIAL PREMATURE COMPLEXES NONSPECIFIC T ABNORMALITIES, LATERAL LEADS : Confirmed by: Alli Franklin MD 20-Sep-2018 07:42:46
== END 2018-09-19 20:40 | disposition home or self-care (01) ==
LOC: ER 14:14
DX: E86.0 Dehydration (principal); R53.1 Weakness; R32 Unspecified urinary incontinence; I25.10 Atherosclerotic heart disease of native coronary artery without angina pectoris; I10 Essential (primary) hypertension; I25.2 Old myocardial infarction; E11.9 Type 2 diabetes mellitus without complications; Z88.8 Allergy status to other drugs, medicaments and biological substances; Z87.891 Personal history of nicotine dependence; Z95.5 Presence of coronary angioplasty implant and graft; Z95.1 Presence of aortocoronary bypass graft
CPT/HCPCS: 93005; 99285; 96360; 36415; 82553; 82962; 82550; 85025; 85610; 85730; 80053; 81001; 84484; 71045; 73130; 70450; 72125; 93010; J7030

== ENCOUNTER 2018-09-21 11:57 | Inpatient (IN) | payer MEDICARE, OTHER ==
[2018-09-21 12:42] LABS: ABSOLUTE EOSINOPHILS # (AUTO) 0.1 10^3/uL (0.0-0.6); ABSOLUTE LYMPHOCYTES (AUTO) 1.8 10^3/uL (0.5-4.7); ABSOLUTE MONOCYTES (AUTO) 0.5 10^3/uL (0.1-1.4); ABSOLUTE NEUT (AUTO) 2.4 10^3/uL (1.7-8.2); BASOPHILS % (AUTO) 0.7 % (0-2); HEMATOCRIT 35.7 % (37.9-51.0); LYMPHOCYTES % (AUTO) 37.5 % (13-45); MEAN CORPUSCULAR HGB CONC 33.6 g/dL (32.0-36.0); MEAN CORPUSCULAR VOLUME 89 fl (80-97); MONOCYTES % (AUTO) 10.7 % (3-13); PLATELET COUNT 257 10^3/uL (150-450); RED BLOOD COUNT 4.01 10^6/uL (4.35-5.55); RED CELL DISTRIBUTION WIDTH 14.1 % (11.5-14.0); SEGMENTED NEUTROPHILS % (AUTO) 49.1 % (42-78); TOTAL CELLS COUNTED % (AUTO) 100 %; WHITE BLOOD COUNT 4.8 10^3/uL (4.0-10.5)
[2018-09-21 12:56] LABS: ALANINE AMINOTRANSFERASE 20 U/L (21-72); ALBUMIN 3.8 g/dL (3.5-5.0); ALKALINE PHOSPHATASE 44 U/L (38-126); ANION GAP 13 (5-19); ASPARTATE AMINO TRANSFERASE 24 U/L (17-59); BILIRUBIN,DIRECT 0.5 mg/dL (0.0-0.4); BILIRUBIN,TOTAL 0.9 mg/dL (0.2-1.3); BLOOD UREA NITROGEN 23 mg/dL (7-20); CALCIUM 9.1 mg/dL (8.4-10.2); CARBON DIOXIDE 22 mmol/L (22-30); CHLORIDE 101 mmol/L (98-107); CREATINE KINASE 243 U/L (55-170); GLUCOSE 159 mg/dL (75-110); POTASSIUM 4.6 mmol/L (3.6-5.0); SODIUM 136.3 mmol/L (137-145); TOTAL PROTEIN 7.2 g/dL (6.3-8.2)
[2018-09-21 13:06] LABS: CREATINE KINASE MB 1.93 ng/mL (<4.55); TROPONIN I 0.013 ng/mL
--- NOTE | 2018-09-21 13:23 | EKG REPORT ---
SEVERITY:- NORMAL ECG - SINUS RHYTHM : Confirmed by: Alli Franklin MD 21-Sep-2018 13:22:03
[2018-09-21] MEDS ORDERED: RINGERS SOLUTION,LACTATED 1,000 ML IV ONE (15:05)
--- NOTE | 2018-09-21 15:43 | RADIOLOGY REPORT (SQ) ---
EXAM DESCRIPTION: CT HEAD WITHOUT COMPLETED DATE/TIME: 09/21/2018 3:32 pm REASON FOR STUDY: Dizziness COMPARISON: [address] brain exams 09/07/2008, most recently 09/19/2018 TECHNIQUE: Axial images acquired through the brain without intravenous contrast. Images reviewed wi th bone, brain and subdural windows. Additional sagittal and coronal reconstructions were generated. Images stored on PACS. All CT scanners at this facility use dose modulation, iterative reconstruction, and/or weight based d osing when appropriate to reduce radiation dose to as low as reasonably achievable (ALARA). [facility]: Dose Right [facility]: CareDose [facility]: Dose Right [facility]: Teradose 4D [facility]: [employer] RADIATION DOSE: CT Rad equipment meets quality standard of care and radiation dose reduction techniq ues were employed. CTDIvol: 53.2 mGy. DLP: 937 mGy-cm. mGy. LIMITATIONS: None. FINDINGS: VENTRICLES: Normal size and contour. CEREBRUM: Benign basal ganglia calcification bilaterally. Chronic small vessel ischemic change in th e hemispheric white matter. No CT evidence of acute large territory ischemic change, acute intracran ial hemorrhage, mass effect, or midline shift. 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 No acute ischemic change, pos terior fossa mass effect or hemorrhage. EXTRAAXIAL SPACES: No fluid collections. No masses. ORBITS AND GLOBE: No intra- or extraconal masses. Post bilateral cataract surgery CALVARIUM: No fracture. PARANASAL SINUSES: No fluid or mucosal thickening. SOFT TISSUES: No mass or hematoma. OTHER: No other significant finding. IMPRESSION: No acute findings. EVIDENCE OF ACUTE STROKE: NO. COMMENT: Quality ID # 436: Final reports with documentation of one or more dose reduction techniques (e.g., Automated exposure control, adjustment of the mA and/or kV according to patient size, use of iterative reconstruction technique) TECHNICAL DOCUMENTATION: JOB ID: [id number] [employer]- All Rights Reserved Reading location - IP/workstation name: [email or web address]
--- NOTE | 2018-09-21 15:48 | RADIOLOGY REPORT (SQ) ---
EXAM DESCRIPTION: CT ABD/PELVIS NO ORAL OR IV COMPLETED DATE/TIME: 09/21/2018 3:32 pm REASON FOR STUDY: abdominal distention COMPARISON: CT abdomen pelvis 07/29/2017 TECHNIQUE: CT scan of the abdomen and pelvis performed without intravenous or oral contrast. Images reviewed with lung, soft tissue, and bone windows. Reconstructed coronal and sagittal MPR images revi ewed. All images stored on PACS. All CT scanners at this facility use dose modulation, iterative reconstruction, and/or weight based d osing when appropriate to reduce radiation dose to as low as reasonably achievable (ALARA). [facility]: Dose Right [facility]: CareDose [facility]: Dose Right [facility]: Teradose 4D [facility]: [employer] RADIATION DOSE: CT Rad equipment meets quality standard of care and radiation dose reduction techniq ues were employed. CTDIvol: 14.4 mGy. DLP: 786 mGy-cm.mGy. LIMITATIONS: None. FINDINGS: LOWER CHEST: Lung bases are clear. Calcified mitral annulus. NON-CONTRASTED LIVER, SPLEEN, ADRENALS: Evaluation limited by lack of IV contrast. No identified sign ificant masses. PANCREAS: No masses. No peripancreatic inflammatory changes. GALLBLADDER: No identified stones by CT criteria. No inflammatory changes to suggest cholecystitis. RIGHT KIDNEY AND URETER: No suspicious masses. Assessment limited by lack of IV contrast. No collec ting system calcifications. There are calcifications along the renal arteries at the hilum No hydr onephrosis or hydroureter. LEFT KIDNEY AND URETER: No suspicious masses. Assessment limited by lack of IV contrast. No collect ing system calcifications. There are calcifications along the renal arteries at the hilum. No hydr onephrosis or hydroureter. AORTA AND RETROPERITONEUM: No aneurysm. No retroperitoneal masses or adenopathy. BOWEL AND PERITONEAL CAVITY: No obvious masses or inflammatory changes. No free fluid. APPENDIX: Normal. PELVIS, BLADDER, AND ABDOMINAL WALL:No abnormal masses. No free fluid. Bladder normal. BONES: No significant findings. OTHER: No other significant finding. IMPRESSION: NO SIGNIFICANT OR ACUTE PROCESS IN THE ABDOMEN OR PELVIS. COMMENT: Quality ID # 436: Final reports with documentation of one or more dose reduction techniques (e.g., Automated exposure control, adjustment of the mA and/or kV according to patient size, use of iterative reconstruction technique) TECHNICAL DOCUMENTATION: JOB ID: [id number]- All Rights Reserved Reading location - IP/workstation name: [email or web address]
[2018-09-21 16:57] LABS: APPEARANCE,URINE CLEAR; BILIRUBIN,URINE NEGATIVE (NEGATIVE); COLOR,URINE STRAW; GLUCOSE, URINE 50 mg/dL (NEGATIVE); KETONES,URINE NEGATIVE (NEGATIVE); LEUKOCYTE ESTERASE,URINE NEGATIVE (NEGATIVE); NITRITE,URINE NEGATIVE (NEGATIVE); PROTEIN,URINE 30 mg/dL (NEGATIVE); URINE SPECIFIC GRAVITY 1.008; UROBILINOGEN,URINE NEGATIVE mg/dL (<2.0)
--- NOTE | 2018-09-21 18:30 | ER Document Report ---
ED Dizziness/Weakness - General Chief Complaint: General Weakness Stated Complaint: WEAKNESS Time Seen by Provider: 09/21/18 14:44 Mode of Arrival: Wheelchair Information source: Patient, Relative Notes: Patient is a 83-year-old male who returns to the emergency room from the visit on 1127 in which I saw him that night and evaluated him in allowed him to go home. Patient comes back today states that he had progressively gotten better over the course of 24 hours he had gotten more energy and was up and walking around as all the way through last night. She states he had more energy and then this morning he got up ahead of her and she could tell that something was not right when she went into the living room he was laying over in his chair and complaining that he could not move to get up. He complained of lower extremity weakness bilaterally. She also states that when she finally did getting up to walk around that he had to take him to go to the bathroom she got into the bathroom he had a bowel movement and stated that his stool was black. No he does take iron pills and she knows that but she just had seen at that black in a while. Patient has a history of acute renal failure, coronary artery disease, dehydration in the past, syncope in the past, hypertension. Diabetes mellitus also states that his blood pressures have been super erratic they have been very low at home and then in the afternoon to get higher and she is afraid to give him his medications because in the morning is too low in the evening is to TRAVEL OUTSIDE OF THE [place] IN LAST 30 DAYS: No - HPI Patient complains to provider of: Dizziness, Near-syncope, Weakness Onset: This morning Onset/Duration: Gradual Quality of pain: No pain Severity: Moderate Pain Level: 2 Associated symptoms: Recent trauma, Weak all over Baseline gait: Walks w/o assistance, Uses a cane - Related Data Allergies/Adverse Reactions: amiodarone [Amiodarone] Allergy (Severe, Verified 09/21/18 12:03) flashbacks Past Medical History - General Information source: Patient, Relative - Social History Smoking Status: Former Smoker Cigarette use (# per day): No Chew tobacco use (# tins/day): No Smoking Education Provided: No Frequency of alcohol use: None Drug Abuse: None Family History: Reviewed & Not Pertinent Patient has suicidal ideation: No Patient has homicidal ideation: No - Past Medical History Cardiac Medical History: Reports: Hx Coronary Artery Disease, Hx Heart Attack, Hx Hypercholesterolemia, Hx Hypertension Endocrine Medical History: Reports: Hx Diabetes Mellitus Type 1, Hx Diabetes Mellitus Type 2 Renal/ Medical History: Denies: Hx Peritoneal Dialysis Psychiatric Medical History: Reports: Hx Depression Past Surgical History: Reports: Hx Abdominal Surgery - hernia, Hx Cardiac Catheterization - stents, Hx Cardiac Surgery - bypass, Hx Coronary Artery Bypass Graft - Immunizations Hx Diphtheria, Pertussis, Tetanus Vaccination: Yes Hx Pneumococcal Vaccination: 07/23/13 Review of Systems - Review of Systems Constitutional: No symptoms reported EENT: No symptoms reported Cardiovascular: No symptoms reported Respiratory: No symptoms reported Gastrointestinal: No symptoms reported Genitourinary: No symptoms reported Male Genitourinary: No symptoms reported Musculoskeletal: No symptoms reported Skin: No symptoms reported Hematologic/Lymphatic: No symptoms reported Neurological/Psychological: No symptoms reported, Weakness -: Yes All other systems reviewed and negative Physical Exam - Vital signs Vitals: Temp Pulse Resp BP Pulse Ox 98.0 F 59 L 12 154/66 H 100 09/21/18 12:02 09/21/18 12:02 09/21/18 12:02 09/21/18 12:02 09/21/18 12:02 Interpretation: Hypertensive, Bradycardic - Notes Notes: PHYSICAL EXAMINATION: GENERAL: Patient is a well-nourished well-developed 83-year-old male who is in no acute distress tonight on physical examination.. HEAD: Atraumatic, normocephalic. EYES: Pupils equal round and reactive to light, extraocular movements intact, sclera anicteric, conjunctiva are normal. ENT: Nares patent, oropharynx clear without exudates. Moist mucous membranes. NECK: Normal range of motion, supple without lymphadenopathy LUNGS: Breath sounds clear to auscultation bilaterally and equal. No wheezes rales or rhonchi. HEART: Regular rate and rhythm without murmurs ABDOMEN: Soft, nontender, nondistended abdomen. No guarding, no rebound. No masses appreciated. Musculoskeletal: Normal range of motion, no pitting or edema. No cyanosis. NEUROLOGICAL: Normal speech, normal gait. Normal sensory, motor exams PSYCH: Normal mood, normal affect. SKIN: Warm, Dry, normal turgor, no rashes or lesions noted. Course - Re-evaluation Re-evalutation: 09/21/18 18:47 Patient's course stating that it has been pretty much the same as it was 2 nights ago. Is been fairly uneventful he has pinked up after a liter of fluids. He feels better. However at this time I think it is time to get him admitted because he is a turnaround come back in less than 48 hours and he still having weakness in the lower extremities. His NIH score was still only 1 or 2 pops other than that is what it was the other night when we get them. Does not present as a CVA or stroke type person however at this point I do believe is time to get him looked at in a 23-hour admit for a few days admission. He is got multitude of medications that could be causing a problem as far as his blood pressures go he is on bisoprolol, finasteride, Lantus, amlodipine, metformin, and fewer sulfate. According to the labs that I have he does not look like he is becoming anemic at this time. Although he does have the ferrous sulfate for that purpose. He is not really orthostatic so why he is responded so well to fluids I do not necessarily understand. Blood sugars overall been stable. Patient has had no chest pain is not been short of breath. - Vital Signs Vital signs: Temp Pulse Resp BP Pulse Ox 98.0 F 65 12 173/62 H 100 09/21/18 12:02 09/21/18 18:30 09/21/18 12:02 09/21/18 18:30 09/21/18 12:02 - Laboratory Result Diagrams: 09/21/18 11:32 09/21/18 11:32 Laboratory results interpreted by me: 09/21/18 09/21/18 09/21/18 11:32 11:32 15:10 RBC 4.01 L Hgb 12.0 L Hct 35.7 L RDW 14.1 H Sodium 136.3 L BUN 23 H Creatinine 1.26 H Est GFR (Non-Af Amer) 55 L Glucose 159 H POC Glucose Direct Bilirubin 0.5 H ALT 20 L Creatine Kinase 243 H Urine Protein 30 H Urine Glucose (UA) 50 H 09/21/18 18:46 RBC Hgb Hct RDW Sodium BUN Creatinine Est GFR (Non-Af Amer) Glucose POC Glucose 124 H Direct Bilirubin ALT Creatine Kinase Urine Protein Urine Glucose (UA) Discharge - Discharge Clinical Impression: Weakness, Dehydration Condition: Stable Disposition: ADMITTED INPATIENT Admitting Provider: Hospitalist Unit Admitted: Telemetry Referrals: Mis BARBA MD [Primary Care Provider] - Follow up as needed
[2018-09-21] MEDS ORDERED: NORMAL SALINE 1000 ML 1,000 ML IV ONE (18:55)
[2018-09-21] MEDS ORDERED: OXYCODONE-ACETAMINOPHEN 5-325 MG TABLET PO PRN (20:29)
[2018-09-21] MEDS ORDERED: TEMAZEPAM 7.5 MG CAPSULE PO PRN (20:29)
[2018-09-21] MEDS ORDERED: ACETAMINOPHEN 325 MG TABLET PO PRN (20:29)
[2018-09-21] MEDS ORDERED: MAG HYDROX/AL HYDROX/SIMETH SUSP 30 ML UDCUP PO PRN (20:29)
[2018-09-21] MEDS ORDERED: PROMETHAZINE HCL INJ 25 MG/1 ML VIAL IV PRN (20:29)
[2018-09-21] MEDS ORDERED: PROMETHAZINE HCL 25 MG TABLET PO PRN (20:29)
--- NOTE | 2018-09-21 21:30 | PDOC H&P ---
History of Present Illness Admission Date/PCP: 09/21/18 19:53 JAS ROBERTS MD, ASSISTANT CENTER MANAGER: Mis BARBA MD Patient complains of: Near syncope History of Present Illness: GONZÁLEZ PAULINO is a 83 year old male with medical history remarkable for several near syncopal episodes in the past. His and daughter are at the bedside and tells me that the patient is having frequent falls since last Monday, has been unsteady, dizzy. Today he tried to go to the bathroom and was severely dizzy, his has to help him to go into the couch, tells me that he did not fall and did not hit his head, she called EMS and upon arrival his blood pressure was 70/33, has been severely weak more in his lower extremities. His daughter tells me that he is having pain on his joints more in his right hand and on his left neck. Patient has been in our emergency department 2 days ago for similar symptoms, was felt that was secondary to dehydration was hydrated and sent but home. As some look him in our electronic medical records patient has multiple episodes of near syncope and has been in rehabilitation last year, it was felt that his falls were secondary to his joint pain. His also tells me that he had a bowel movement when he was in the [facility] was black tarry color, patient is on iron pills, his H&H has been stable. In the emergency department has received 2 L of IV fluids and his blood pressure has been going up to 173/67. Orthostatic vital signs negative Denies nausea, vomiting, fever, chills, shortness of breath, chest pain, abdominal pain, tells me his has frequency, denies hematuria or dysuria. Past Medical History Cardiac Medical History: Reports: Coronary Artery Disease, Myocardial Infarction , Hyperlipidema, Hypertension Endocrine Medical History: Reports: Diabetes Mellitus Type 2 Psychiatric Medical History: Reports: Depression Past Surgical History Past Surgical History: Reports: Cardiac Catheterization - stents, Coronary Artery Bypass Graft Social History Smoking Status: Former Smoker Frequency of Alcohol Use: None Hx Recreational Drug Use: No Hx Prescription Drug Abuse: No Family History Family History: Reviewed & Not Pertinent Parental Family History Reviewed: Yes Children Family History Reviewed: Yes Sibling(s) Family History Reviewed.: Yes Medication/Allergy Home Medications: Amlodipine Besylate [Norvasc 10 mg Tablet] 10 mg PO QPM 09/21/18 Aspirin [Adult Low Dose Aspirin EC] 81 mg PO DAILY 09/21/18 Bisoprolol Fumarate [Zebeta 5 mg Tablet] 10 mg PO DAILY 09/21/18 Citalopram Hydrobromide [Celexa 10 mg Tablet] 5 mg PO DAILY 09/21/18 Ferrous Sulfate [Feosol 325 mg Tablet] 325 mg PO DAILY 09/21/18 Finasteride [Proscar 5 mg Tablet] 5 mg PO DAILY 09/21/18 Insulin Glargine,Hum.rec.anlog [Lantus Insulin 100 Unit/mL] 40 units SQ QAM Metformin HCl [Glucophage 500 mg Tablet] 750 mg PO BID 09/21/18 Rosuvastatin Calcium [Crestor 20 mg Tablet] 20 mg PO QHS 09/21/18 Allergies/Adverse Reactions: amiodarone [Amiodarone] Allergy (Severe, Verified 09/21/18 12:03) flashbacks Review of Systems Review of Systems: As OUTLINE IN THE HPI, others negative Physical Exam Vital Signs: Temp Pulse Resp BP Pulse Ox 98.0 F 65 18 190/70 H 100 09/21/18 12:02 09/21/18 18:30 09/21/18 20:02 09/21/18 20:02 09/21/18 20:02 Intake & Output 09/20/18 09/21/18 09/22/18 06:59 06:59 06:59 Intake Total 1000 Balance 1000 Additional comments: General appearance: Elderly, chronically weak, alert and cooperative, and appears to be in no acute distress Head: Normocephalic Eyes: PEERL, EOMI, vision is grossly intact. Ears: External auditory canal and tympanic membranes clear, hearing grossly intact. Nose: No nasal discharge. Throat: Oral cavity and pharynx normal. No inflammation, swelling, exudate or lesions. Neck: Neck supple, nontender without lymphadenopathy, masses or thyromegaly. Cardiac: Normal S1 and S2. No S3, S4 or murmurs. Rhythm is regular. There is no cyanosis or pallor. Extremities are warm and well perfused. Capillary refill is less than 2 seconds. No carotid bruits. Lungs: Clear to auscultation and percussion without rales, rhonchi, wheezing or diminished breath sounds. Not using accessory muscles. Abdomen: Positive bowel sounds. Soft. Nondistended, nontender. No guarding or rebound. No masses. No hepatosplenomegaly Extremities: No significant deformity or joint abnormality. No edema. Peripheral pulses intact. No varicosities. Neurological: Cranial nerves II through XII grossly intact. Strength and sensation symmetric and intact throughout. Reflexes 2+ throughout. Skin: Skin normal color, texture and turgor with no lesions or eruptions, warm and dry. Psychiatric: The mental examination revealed the patient was oriented to person , place, and time. The patient was able to demonstrate good judgment on recent , without hallucinations, abnormal affect or abnormal behaviors. Results Laboratory Results: 09/21/18 09/21/18 09/21/18 11:32 11:32 11:32 WBC 4.8 RBC 4.01 L Hgb 12.0 L Hct 35.7 L MCV 89 MCH 30.0 MCHC 33.6 RDW 14.1 H Plt Count 257 Seg Neutrophils % 49.1 Lymphocytes % 37.5 Monocytes % 10.7 Eosinophils % 2.0 Basophils % 0.7 Absolute Neutrophils 2.4 Absolute Lymphocytes 1.8 Absolute Monocytes 0.5 Absolute Eosinophils 0.1 Absolute Basophils 0.0 Sodium 136.3 L Potassium 4.6 Chloride 101 Carbon Dioxide 22 Anion Gap 13 BUN 23 H Creatinine 1.26 H Est GFR ( Amer) > 60 Est GFR (Non-Af Amer) 55 L Glucose 159 H POC Glucose Calcium 9.1 Total Bilirubin 0.9 Direct Bilirubin 0.5 H AST 24 ALT 20 L Alkaline Phosphatase 44 Creatine Kinase 243 H CK-MB (CK-2) 1.93 Troponin I 0.013 Total Protein 7.2 Albumin 3.8 Urine Color Urine Appearance Urine pH Ur Specific [place] Urine Protein Urine Glucose (UA) Urine Ketones Urine Blood Urine Nitrite Urine Bilirubin Urine Urobilinogen Ur Leukocyte Esterase Urine WBC (Auto) Urine RBC (Auto) Squamous Epi Cells Auto Urine Mucus (Auto) Urine Ascorbic Acid 09/21/18 09/21/18 15:10 18:46 WBC RBC Hgb Hct MCV MCH MCHC RDW Plt Count Seg Neutrophils % Lymphocytes % Monocytes % Eosinophils % Basophils % Absolute Neutrophils Absolute Lymphocytes Absolute Monocytes Absolute Eosinophils Absolute Basophils Sodium Potassium Chloride Carbon Dioxide Anion Gap BUN Creatinine Est GFR ( Amer) Est GFR (Non-Af Amer) Glucose POC Glucose 124 H Calcium Total Bilirubin Direct Bilirubin AST ALT Alkaline Phosphatase Creatine Kinase CK-MB (CK-2) Troponin I Total Protein Albumin Urine Color STRAW Urine Appearance CLEAR Urine pH 7.0 Ur Specific [place] 1.008 Urine Protein 30 H Urine Glucose (UA) 50 H Urine Ketones NEGATIVE Urine Blood NEGATIVE Urine Nitrite NEGATIVE Urine Bilirubin NEGATIVE Urine Urobilinogen NEGATIVE Ur Leukocyte Esterase NEGATIVE Urine WBC (Auto) 0 Urine RBC (Auto) 0 Squamous Epi Cells Auto <1 Urine Mucus (Auto) RARE Urine Ascorbic Acid NEGATIVE Impressions: Head CT 09/21/18 15:02 IMPRESSION: No acute findings. EVIDENCE OF ACUTE STROKE: NO. Abdomen/Pelvis CT 09/21/18 15:04 IMPRESSION: NO SIGNIFICANT OR ACUTE PROCESS IN THE ABDOMEN OR PELVIS. Assessment & Plan - Diagnosis (1) Near syncope Is this a current diagnosis for this admission?: Yes Plan: Near syncope likely multifactorial. Continue telemetry monitoring to rule out arrhythmias. Echocardiogram. Carotid ultrasound. Physical therapy and occupational therapy as this can be also secondary to joint pain Dehydration ultimately played a big role in this, after 2 L of IV fluids his blood pressure has increased, continue with NS at 75 cc/h. Fall precautions (2) CAD (coronary artery disease) Is this a current diagnosis for this admission?: Yes Plan: Coronary artery disease status post CABG currently no cardiac symptomatology, continue home medications. Telemetry monitoring, cardiac markers x3. (3) Diabetes mellitus type 2 in nonobese Is this a current diagnosis for this admission?: Yes Plan: Accu-Cheks q. before meals and at bedtime, insulin lispro sliding scale, hypothermic protocol. Continue home diabetic medication (4) Hypertension Qualifiers: Hypertension type: essential hypertension Qualified Code(s): I10 - Essential (primary) hypertension Is this a current diagnosis for this admission?: Yes Plan: Initially patient hypotensive 70/33 that improved after IV fluids. Now [id number], embolism his home antihypertensive medications. (5) DVT prophylaxis Is this a current diagnosis for this admission?: Yes Plan: Lovenox - Time Time Spent: 50 to 70 Minutes - Plan Summary Plan Summary: Case discussed with patient, and daughter at the bedside, agree with plan.
[2018-09-21] MEDS: ENOXAPARIN SODIUM INJ 40 MG/0.4 ML DISP.SYRIN SUBCUT SCH (23:38)
[2018-09-21] MEDS: ATORVASTATIN CALCIUM 40 MG TABLET PO SCH (23:39)
[2018-09-21] MEDS ORDERED: GLUCAGON,HUMAN RECOMB 1 MG INJ IM PRN (23:40)
[2018-09-21] MEDS ORDERED: DEXTROSE 50%-WATER SYRINGE 12.5 GM/25 ML DOSE IV PRN (23:40)
[2018-09-21] MEDS ORDERED: DEXTROSE 40% GEL 15 GM TUBE PO PRN (23:40)
[2018-09-21] MEDS ORDERED: DEXTROSE 50%-WATER SYRINGE 25 GM/50 ML DOSE IV PRN (23:40)
[2018-09-21] MEDS ORDERED: DEXTROSE 40% GEL 15 GM TUBE X 2 PO PRN (23:40)
[2018-09-22 00:46] LABS: APPEARANCE,URINE CLEAR; BILIRUBIN,URINE NEGATIVE (NEGATIVE); COLOR,URINE STRAW; GLUCOSE, URINE >=500 mg/dL (NEGATIVE); KETONES,URINE NEGATIVE (NEGATIVE); LEUKOCYTE ESTERASE,URINE NEGATIVE (NEGATIVE); NITRITE,URINE NEGATIVE (NEGATIVE); PROTEIN,URINE 30 mg/dL (NEGATIVE); URINE SPECIFIC GRAVITY 1.011
[2018-09-22 04:29] LABS: HEMATOCRIT 34.8 % (37.9-51.0); HEMOGLOBIN 11.7 g/dL (13.5-17.0); MEAN CORPUSCULAR HGB CONC 33.6 g/dL (32.0-36.0); MEAN CORPUSCULAR VOLUME 89 fl (80-97); PLATELET COUNT 237 10^3/uL (150-450); RED BLOOD COUNT 3.89 10^6/uL (4.35-5.55)
[2018-09-22 04:49] LABS: ANION GAP 13 (5-19); BLOOD UREA NITROGEN 20 mg/dL (7-20); CALCIUM 9.2 mg/dL (8.4-10.2); CARBON DIOXIDE 23 mmol/L (22-30); CHLORIDE 103 mmol/L (98-107); CREATINE KINASE 164 U/L (55-170); GLUCOSE 227 mg/dL (75-110); POTASSIUM 4.6 mmol/L (3.6-5.0); SODIUM 138.9 mmol/L (137-145)
[2018-09-22] MEDS: METFORMIN HCL 500 MG TABLET PO SCH ×2 (09:19→17:38)
[2018-09-22] MEDS: ASPIRIN 81 MG TABLET, ENT COATED PO SCH (09:19)
[2018-09-22] MEDS: FERROUS SULFATE 325 MG TABLET PO SCH (09:19)
[2018-09-22] MEDS: ATENOLOL 50 MG TABLET PO SCH (09:20)
[2018-09-22] MEDS: FINASTERIDE 5 MG TABLET PO SCH (09:20)
[2018-09-22] MEDS: ENOXAPARIN SODIUM INJ 40 MG/0.4 ML DISP.SYRIN SUBCUT SCH (09:20)
[2018-09-22] MEDS ORDERED: CITALOPRAM HYDROBROMIDE 20 MG TABLET PO SCH (10:00)
[2018-09-22] MEDS: INSULIN GLARGINE,HUM.REC.ANLOG 300 UNIT/3 ML INSULN.PEN SUBCUT SCH (10:13)
[2018-09-22] MEDS: AMLODIPINE BESYLATE 10 MG TABLET PO SCH (17:38)
--- NOTE | 2018-09-22 18:41 | PDOC PROGRESS REPORT ---
Subjective Progress Note for:: 09/22/18 Subjective:: Extremely sleepy. He has not had any syncopal events today. Reason For Visit: NEAR SYNCOPE Physical Exam Vital Signs: Temp Pulse Resp BP Pulse Ox 98 F 71 16 145/93 H 99 09/22/18 16:00 09/22/18 16:00 09/22/18 16:00 09/22/18 16:00 09/22/18 16:00 Intake & Output 09/21/18 09/22/18 09/23/18 06:59 06:59 06:59 Intake Total 1450 637 Output Total 500 800 Balance 950 -163 Weight 73.7 kg General appearance: PRESENT: no acute distress, well-developed, other - Fell asleep during the encounter Head exam: PRESENT: atraumatic, normocephalic Mouth exam: PRESENT: moist, tongue midline Respiratory exam: PRESENT: clear to auscultation dilip, symmetrical, unlabored. ABSENT: rales, rhonchi, wheezes Cardiovascular exam: PRESENT: RRR, +S1, +S2 GI/Abdominal exam: PRESENT: normal bowel sounds, soft. ABSENT: distended, guarding, tenderness Musculoskeletal exam: PRESENT: normal inspection Neurological exam: PRESENT: other - Unable to assess. Patient extremely sleepy. Fell asleep during the encounter. Psychiatric exam: ABSENT: agitated, anxious Skin exam: PRESENT: dry, normal color, warm Results Laboratory Results: 09/22/18 03:20 09/22/18 03:20 09/21/18 09/22/18 09/22/18 23:45 03:20 03:20 WBC 5.0 RBC 3.89 L Hgb 11.7 L Hct 34.8 L MCV 89 MCH 30.0 MCHC 33.6 RDW 14.0 Plt Count 237 Sodium 138.9 Potassium 4.6 Chloride 103 Carbon Dioxide 23 Anion Gap 13 BUN 20 Creatinine 1.05 Est GFR ( Amer) > 60 Est GFR (Non-Af Amer) > 60 Glucose 227 H Calcium 9.2 Magnesium Urine Color STRAW Urine Appearance CLEAR Urine pH 6.0 Ur Specific [place] 1.011 Urine Protein 30 H Urine Glucose (UA) >=500 H Urine Ketones NEGATIVE Urine Blood NEGATIVE Urine Nitrite NEGATIVE Ur Leukocyte Esterase NEGATIVE Urine WBC (Auto) 0 Stool Occult Blood 09/22/18 09/22/18 03:20 14:30 WBC RBC Hgb Hct MCV MCH MCHC RDW Plt Count Sodium Potassium Chloride Carbon Dioxide Anion Gap BUN Creatinine Est GFR ( Amer) Est GFR (Non-Af Amer) Glucose Calcium Magnesium 1.9 Urine Color Urine Appearance Urine pH Ur Specific [place] Urine Protein Urine Glucose (UA) Urine Ketones Urine Blood Urine Nitrite Ur Leukocyte Esterase Urine WBC (Auto) Stool Occult Blood POSITIVE 09/21/18 09/22/18 09/22/18 20:40 03:20 03:20 Creatine Kinase 164 Troponin I < 0.012 < 0.012 09/22/18 08:57 Creatine Kinase Troponin I < 0.012 Impressions: Head CT 09/21/18 15:02 IMPRESSION: No acute findings. EVIDENCE OF ACUTE STROKE: NO. Abdomen/Pelvis CT 09/21/18 15:04 IMPRESSION: NO SIGNIFICANT OR ACUTE PROCESS IN THE ABDOMEN OR PELVIS. Assessment & Plan - Diagnosis (1) Near syncope Is this a current diagnosis for this admission?: Yes Plan: Patient has had occasional abnormal beats but nothing sustained on telemetry. He has not had a syncopal episode since his admission. Carotid ultrasound final interpretation is pending. (2) Obstructive sleep apnea Is this a current diagnosis for this admission?: Yes Plan: With his increased somnolence and his 's description of apneic episodes at night the patient likely has obstructive sleep apnea. A sleep study has been ordered 3 times but the patient has not been able to sleep enough for acceptable results. I have ordered nocturnal oximetry tonight to look for apneic episodes and episodes of desaturation. (3) Diabetes mellitus type 2 in nonobese Is this a current diagnosis for this admission?: Yes Plan: Continue metformin, Lantus and sliding scale insulin - Time Time Spent with patient: 15-24 minutes Medications reviewed and adjusted accordingly: Yes Anticipated discharge: Home
[2018-09-22] MEDS: CITALOPRAM HYDROBROMIDE 20 MG TABLET PO SCH (21:27)
[2018-09-22] MEDS: ATORVASTATIN CALCIUM 40 MG TABLET PO SCH (21:27)
[2018-09-22] MEDS: INSULIN LISPRO 100 UNIT/ML 3 ML VIAL SUBCUT PRN (21:28)
[2018-09-23] MEDS: INSULIN GLARGINE,HUM.REC.ANLOG 300 UNIT/3 ML INSULN.PEN SUBCUT SCH (08:46)
[2018-09-23] MEDS: ASPIRIN 81 MG TABLET, ENT COATED PO SCH (10:15)
[2018-09-23] MEDS: ENOXAPARIN SODIUM INJ 40 MG/0.4 ML DISP.SYRIN SUBCUT SCH (10:15)
[2018-09-23] MEDS: FERROUS SULFATE 325 MG TABLET PO SCH (10:15)
[2018-09-23] MEDS: FINASTERIDE 5 MG TABLET PO SCH (10:15)
[2018-09-23] MEDS: METFORMIN HCL 500 MG TABLET PO SCH ×2 (10:15→18:00)
[2018-09-23] MEDS: ATENOLOL 50 MG TABLET PO SCH (10:15)
[2018-09-23] MEDS ORDERED: NORMAL SALINE 1000 ML 1,000 ML IV PRN (11:44)
--- NOTE | 2018-09-23 12:03 | PDOC PROGRESS REPORT ---
Subjective Progress Note for:: 09/23/18 Subjective:: September 23, 2018-sitting at the bedside the patient was orthostatic today. He is still extremely somnolent. Reason For Visit: NEAR SYNCOPE Physical Exam Vital Signs: Temp Pulse Resp BP Pulse Ox 97.5 F 64 18 110/64 100 09/23/18 08:30 09/23/18 08:30 09/23/18 08:30 09/23/18 08:30 09/23/18 08:29 Pulse Oximeter Nocturnal Start: 09/22/18 15: 39 Freq: RTQ4 Status: Complete Document 09/23/18 04:00 SFL (Rec: 09/23/18 04:22 SFL [id number]) Nocturnal Pulse Oximetry Equipment Usage Equipment in Use Oxygen Delivery Method (includes room Room Air air) O2 Sat by Pulse Oximetry (92-100) 98 Continuous SpO2 Machine # 4 Intake & Output 09/22/18 09/23/18 09/24/18 06:59 06:59 06:59 Intake Total 1450 957 Output Total 500 1440 Balance 950 -483 Weight 73.7 kg 74.2 kg General appearance: PRESENT: other - Somnolent Head exam: PRESENT: atraumatic, normocephalic Mouth exam: PRESENT: dry mucosa, tongue midline Respiratory exam: PRESENT: clear to auscultation dilip, symmetrical, unlabored. ABSENT: rales, wheezes Cardiovascular exam: PRESENT: RRR, +S1, +S2 GI/Abdominal exam: PRESENT: normal bowel sounds, soft. ABSENT: distended, tenderness Neurological exam: PRESENT: other - Patient is quite somnolent again today. Results Laboratory Results: 09/22/18 03:20 09/22/18 03:20 09/22/18 14:30 Stool Occult Blood POSITIVE 09/21/18 09/22/18 09/22/18 20:40 03:20 03:20 Creatine Kinase 164 Troponin I < 0.012 < 0.012 09/22/18 08:57 Creatine Kinase Troponin I < 0.012 Impressions: Head CT 09/21/18 15:02 IMPRESSION: No acute findings. EVIDENCE OF ACUTE STROKE: NO. Abdomen/Pelvis CT 09/21/18 15:04 IMPRESSION: NO SIGNIFICANT OR ACUTE PROCESS IN THE ABDOMEN OR PELVIS. Assessment & Plan - Diagnosis (1) Near syncope Is this a current diagnosis for this admission?: Yes Plan: 09/22/2018-patient has had occasional abnormal beats but nothing sustained on telemetry. He has not had a syncopal episode since his admission. Carotid ultrasound final interpretation is pending. September 23, 2018-this morning the patient exhibited orthostasis sitting at the bedside. This resolved when he was recumbent. Going to bolus IV fluids and see if this helps. I will likely check thyroid and cortisol levels as well. (2) Obstructive sleep apnea Is this a current diagnosis for this admission?: Yes Plan: 09/22/2018-with his increased somnolence and his 's description of apneic episodes at night the patient likely has obstructive sleep apnea. A sleep study has been ordered 3 times but the patient has not been able to sleep enough for acceptable results. I have ordered nocturnal oximetry tonight to look for apneic episodes and episodes of desaturation. September 23, 2018-the patient had continuous pulse oximetry last night. Awaiting final results. (3) Diabetes mellitus type 2 in nonobese Is this a current diagnosis for this admission?: Yes Plan: Continue metformin, Lantus and sliding scale insulin - Time Time Spent with patient: 15-24 minutes Medications reviewed and adjusted accordingly: Yes Anticipated discharge: Home
[2018-09-23] MEDS: AMLODIPINE BESYLATE 10 MG TABLET PO SCH (18:00)
[2018-09-23] MEDS: CITALOPRAM HYDROBROMIDE 20 MG TABLET PO SCH (21:22)
[2018-09-23] MEDS: ATORVASTATIN CALCIUM 40 MG TABLET PO SCH (21:22)
[2018-09-23] MEDS: INSULIN LISPRO 100 UNIT/ML 3 ML VIAL SUBCUT PRN (21:23)
[2018-09-24] MEDS: INSULIN GLARGINE,HUM.REC.ANLOG 300 UNIT/3 ML INSULN.PEN SUBCUT SCH (08:36)
--- NOTE | 2018-09-24 09:09 | RADIOLOGY REPORT (SQ) ---
EXAM DESCRIPTION: CAROTID DOPPLER COMPLETED DATE/TIME: 09/22/2018 12:16 pm REASON FOR STUDY: Near syncope COMPARISON: CT brain 09/21/2018, 09/19/2018 06/17/2018 Carotid Doppler 03/19/2013 TECHNIQUE: Grayscale ultrasound, Doppler velocity and spectra, and color Doppler images acquired of the extra-cranial carotid and vertebral arteries. Images stored on PACS. LIMITATIONS: None. FINDINGS: RIGHT CAROTID CCA Velocities: Within normal limits. Right common carotid artery peak systolic velocity 0.89 m/sec ICA Velocities Peak systolic 0.78 m/s. End diastolic 0.17 m/s. Proximal ICA/CCA peak systolic ratio 0.8. Minimal mixed calcific and noncalcific plaque at the right carotid bifurcation without flow significa nt stenosis of the proximal right ICA using velocity criteria LEFT CAROTID CCA Velocities: Within normal limits. Left common carotid artery peak systolic velocity 0.42 m/sec ICA Velocities Peak systolic 1.2 m/s. End diastolic 0.40 m/s. Proximal ICA/CCA peak systolic ratio 2.2. Mixed calcific and noncalcific plaque at the left carotid bifurcation. Immediately distal to the sha dowing plaque, velocities suggest 50 to 69% stenosis left proximal ICA. VERTEBRAL ARTERIES: Antegrade flow. Normal waveforms. SUBCLAVIAN ARTERIES: Not evaluated OTHER: No other significant finding. IMPRESSION: No flow significant stenosis of the right carotid bifurcation. 50 to 69% diameter narrowing by velocity criteria, proximal left ICA Antegrade pulsatile vertebral artery flow bilaterally COMMENT: Quality ID #[id number]: Velocity criteria are extrapolated from the diameter data as defined by t he Society of Radiologists in Ultrasound Consensus Conference. Radiology 2003: 229; 340-346. TECHNICAL DOCUMENTATION: JOB ID: [id number] [employer]- All Rights Reserved Reading location - IP/workstation name: [facility]-RR
--- NOTE | 2018-09-24 10:17 | PDOC PROGRESS REPORT ---
Subjective Progress Note for:: 09/24/18 Subjective:: September 23, 2018-sitting at the bedside the patient was orthostatic today. He is still extremely somnolent. 09/24/2018-the patient feels better today. After IV fluids yesterday he was able to ambulate without orthostasis. Unfortunately he is still quite somnolent. Reason For Visit: NEAR SYNCOPE Physical Exam Vital Signs: Temp Pulse Resp BP Pulse Ox 98.3 F 59 L 18 171/60 H 100 09/24/18 03:55 09/24/18 07:00 09/24/18 00:12 09/24/18 03:55 09/24/18 03:55 Pulse Oximeter Nocturnal Start: 09/22/18 15: 39 Freq: RTQ4 Status: Complete Document 09/23/18 04:00 SFL (Rec: 09/23/18 04:22 SFL [id number]) Nocturnal Pulse Oximetry Equipment Usage Equipment in Use Oxygen Delivery Method (includes room Room Air air) O2 Sat by Pulse Oximetry (92-100) 98 Continuous SpO2 Machine # 4 Intake & Output 09/23/18 09/24/18 09/25/18 06:59 06:59 06:59 Intake Total 957 1957 Output Total 1440 750 Balance -483 1207 Weight 74.2 kg 74 kg General appearance: PRESENT: no acute distress, well-developed, other - Somnolent Head exam: PRESENT: atraumatic, normocephalic Mouth exam: PRESENT: moist, tongue midline Neck exam: ABSENT: carotid bruit, JVD, lymphadenopathy Respiratory exam: PRESENT: clear to auscultation dilip, symmetrical, unlabored. ABSENT: rales, rhonchi, stridor, wheezes Cardiovascular exam: PRESENT: RRR, +S1, +S2, systolic murmur - 3/6 GI/Abdominal exam: PRESENT: normal bowel sounds, soft. ABSENT: firm, rebound, tenderness Neurological exam: PRESENT: other - Somnolent. Awakens with verbal stimuli. Falls right back asleep. Results Laboratory Results: 09/22/18 03:20 09/22/18 03:20 09/24/18 05:57 TSH 2.09 09/21/18 09/22/18 09/22/18 20:40 03:20 03:20 Creatine Kinase 164 Troponin I < 0.012 < 0.012 09/22/18 08:57 Creatine Kinase Troponin I < 0.012 Impressions: Head CT 09/21/18 15:02 IMPRESSION: No acute findings. EVIDENCE OF ACUTE STROKE: NO. Abdomen/Pelvis CT 09/21/18 15:04 IMPRESSION: NO SIGNIFICANT OR ACUTE PROCESS IN THE ABDOMEN OR PELVIS. Carotid Doppler Study 09/22/18 00:00 IMPRESSION: No flow significant stenosis of the right carotid bifurcation. 50 to 69% diameter narrowing by velocity criteria, proximal left ICA Antegrade pulsatile vertebral artery flow bilaterally Assessment & Plan - Diagnosis (1) Near syncope Is this a current diagnosis for this admission?: Yes Plan: 09/22/2018-patient has had occasional abnormal beats but nothing sustained on telemetry. He has not had a syncopal episode since his admission. Carotid ultrasound final interpretation is pending. September 23, 2018-this morning the patient exhibited orthostasis sitting at the bedside. This resolved when he was recumbent. Going to bolus IV fluids and see if this helps. I will likely check thyroid and cortisol levels as well. 09/24/2018-the patient did receive IV fluids yesterday his blood pressure is on the high side but after the fluids he has not had any orthostatic changes. And waiting for interpretation of the echocardiogram. His orthostasis is not related to any arrhythmia. (2) Somnolence Is this a current diagnosis for this admission?: Yes Plan: 09/24/2018-the patient exhibits hypersomnolence. He ruled out sleep apnea. There are no oxygen saturations at night. The patient's questions carbon monoxide. If this was related to carbon monoxide should have resolved once he was out of the home. I have ordered a blood gas to check for CO2 retention. The exact etiology is not obvious at this time. Continue investigating. (3) Diabetes mellitus type 2 in nonobese Is this a current diagnosis for this admission?: Yes Plan: Continue metformin, Lantus and sliding scale insulin 09/24/2018-the patient does have occasional serum glucose readings greater than 150. I will increase his Lantus to 44 units and continue with his sliding scale and metformin. (4) Obstructive sleep apnea Is this a current diagnosis for this admission?: No Plan: 09/22/2018-with his increased somnolence and his 's description of apneic episodes at night the patient likely has obstructive sleep apnea. A sleep study has been ordered 3 times but the patient has not been able to sleep enough for acceptable results. I have ordered nocturnal oximetry tonight to look for apneic episodes and episodes of desaturation. September 23, 2018-the patient had continuous pulse oximetry last night. Awaiting final results. 09/24/2018-the patient's continuous pulse oximetry revealed no desaturations. In fact his oxygen saturations stayed above 90% the entire time. Obstructive sleep apnea is not causing his somnolence. - Time Time Spent with patient: 25-34 minutes Medications reviewed and adjusted accordingly: Yes
--- NOTE | 2018-09-24 10:41 | XCELERA REPORT ---
[address] [address] Transthoracic Echocardiogram Report Name: GONZÁLEZ PAULINO Age: 83 yrs Gender: Male : 1935 Patient Status: Inpatient Patient Location: [address] [place] [address] Study Date: 09/22/2018 11:42 AM Height: 68 in Weight: 182 lb BSA: 2.0 m2 Procedure: A two-dimensional transthoracic echocardiogram with color flow and Doppler was performed. Study Quality: Poor. The study was technically difficult with many images being suboptimal in quality. Reason For Study: Near syncope History: Near syncope. Ordering Physician: MARI BROTHERS Performed By: Saji Vargas Interpretation Summary The left ventricle is normal in size. There is mild concentric left ventricular hypertrophy. LV EF is > michelle 55% Left ventricular systolic function is normal. Doppler measurements suggest impaired left ventricular relaxation, which is associated with grade I/IV or mild diastolic dysfunction Probably no defenite wall mootion abnormality. There is no thrombus. The right ventricle is grossly normal size. The right ventricle is not well visualized secondary to technical limitations The right atrium is normal. The left atrial size is normal. There is no evidence of mitral valve prolapse. There is no vegetation seen on the mitral valve. There is no mitral valve stenosis. There is a trace amount of mitral regurgitation There is no aortic valvular vegetation. There is no aortic valve stenosis There is no LVOT obstruction. There is aortic sclerosis without aortic stenosis. No aortic regurgitation is present. There is no tricuspid stenosis. Probably trace TR.Unable to calculate RVSP due lack of TR jet.. The aortic root is normal size. There is no pericardial effusion. MMode/2D Measurements & Calculations RVDd: 2.2 cm LVIDd: 4.7 cm FS: 28.6 % Ao root diam: 3.1 cm IVSd: 1.2 cm LVIDs: 3.3 cm EDV(Teich): 99.9 ml Ao root area: 7.7 cm2 LVPWd: 1.4 cm ESV(Teich): 44.8 ml LA dimension: 2.9 cm EF(Teich): 55.2 % LVOT diam: 1.4 cm LVOT area: 1.5 cm2 Doppler Measurements & Calculations MV E max coleman: MV P1/2t max coleman: Ao V2 max: LV V1 max P.9 cm/sec 82.4 cm/sec 89.6 cm/sec 1.6 mmHg MV A max coleman: MV P1/2t: 68.7 msec Ao max P.2 mmHg LV V1 max: 86.9 cm/sec MVA(P1/2t): 3.2 cm2 MONICA(V,D): 1.1 cm2 64.2 cm/sec MV E/A: 0.93 MV dec slope: 351.5 cm/sec2 MR max coleman: PA V2 max: 70.6 cm/secMV P1/2t-pr_phl: 354.3 cm/sec PA max P.0 mmHg 68.7 msec MR max P.2 mmHg Left Ventricle The left ventricle is normal in size. There is mild concentric left ventricular hypertrophy. LV EF is > michelle 55%. Left ventricular systolic function is normal. Doppler measurements suggest impaired left ventricular relaxation, which is associated with grade I/IV or mild diastolic dysfunction. Probably no defenite wall mootion abnormality. There is no thrombus. Right Ventricle The right ventricle is grossly normal size. The right ventricle is not well visualized secondary to technical limitations. Atria The right atrium is normal. The left atrial size is normal. Mitral Valve There is no evidence of mitral valve prolapse. There is no vegetation seen on the mitral valve. There is no mitral valve stenosis. There is a trace amount of mitral regurgitation. Aortic Valve There is no aortic valvular vegetation. There is no aortic valve stenosis. There is no LVOT obstruction. There is aortic sclerosis without aortic stenosis. No aortic regurgitation is present. Tricuspid Valve There is no tricuspid stenosis. Probably trace TR.Unable to calculate RVSP due lack of TR jet.. Pulmonic Valve There is no pulmonic valvular stenosis. There is no pulmonic valvular regurgitation. Great Vessels The aortic root is normal size. Effusions There is no pericardial effusion. : MARI BROTHERS > Mimi Frost
[2018-09-24] MEDS: FERROUS SULFATE 325 MG TABLET PO SCH (10:57)
[2018-09-24] MEDS: METFORMIN HCL 500 MG TABLET PO SCH ×2 (10:57→18:19)
[2018-09-24] MEDS: ENOXAPARIN SODIUM INJ 40 MG/0.4 ML DISP.SYRIN SUBCUT SCH (10:58)
[2018-09-24] MEDS: ASPIRIN 81 MG TABLET, ENT COATED PO SCH (10:58)
[2018-09-24] MEDS: FINASTERIDE 5 MG TABLET PO SCH (11:04)
[2018-09-24] MEDS: ATENOLOL 50 MG TABLET PO SCH (11:05)
[2018-09-24 12:11] LABS: ARTERIAL BLOOD BASE EXCESS 0.5 mmol/L; ARTERIAL BLOOD H2CO3 1.29 mmol/L (1.05-1.35); ARTERIAL BLOOD HCO3 25.6 mmol/L (20-24); ARTERIAL BLOOD O2 SATURATION 96.9 % (94-98); ARTERIAL BLOOD PCO2 42.8 mmHg (35-45); ARTERIAL BLOOD PH 7.39 (7.35-7.45); ARTERIAL BLOOD PO2 90.7 mmHg (80-100); ARTERIAL BLOOD TOTAL CO2 26.9 mmol/L (23-27)
[2018-09-24 12:12] LABS: ARTERIAL BLOOD FIO2 ROOM AIR
[2018-09-24] MEDS: INSULIN LISPRO 100 UNIT/ML 3 ML VIAL SUBCUT PRN (16:31)
[2018-09-24] MEDS: AMLODIPINE BESYLATE 10 MG TABLET PO SCH (18:18)
[2018-09-24] MEDS: ATORVASTATIN CALCIUM 40 MG TABLET PO SCH (21:30)
[2018-09-24] MEDS: CITALOPRAM HYDROBROMIDE 20 MG TABLET PO SCH (21:30)
[2018-09-25] MEDS ORDERED: INSULIN GLARGINE,HUM.REC.ANLOG 300 UNIT/3 ML INSULN.PEN SUBCUT SCH (08:00)
[2018-09-25] MEDS: ASPIRIN 81 MG TABLET, ENT COATED PO SCH (09:14)
[2018-09-25] MEDS: FINASTERIDE 5 MG TABLET PO SCH (09:15)
[2018-09-25] MEDS: ATENOLOL 50 MG TABLET PO SCH (09:15)
[2018-09-25] MEDS: FERROUS SULFATE 325 MG TABLET PO SCH (09:15)
[2018-09-25] MEDS: METFORMIN HCL 500 MG TABLET PO SCH (09:15)
[2018-09-25] MEDS: ENOXAPARIN SODIUM INJ 40 MG/0.4 ML DISP.SYRIN SUBCUT SCH (09:16)
[2018-09-25 11:53] VITALS: BP 166/53
--- NOTE | 2018-09-25 14:01 | PDOC DISCHARGE SUMMARY ---
General - Admit/Disc Date/PCP Admission Date/Primary Care Provider: 09/21/18 19:53 K V OFELIA BARBA MD Discharge Date: 09/25/18 - Discharge Diagnosis (1) Near syncope Is this a current diagnosis for this admission?: Yes Summary: The patient's near syncope and subsequent documented orthostasis during this admission have resolved. His echocardiogram was negative for aortic stenosis. He did not have significant arrhythmia findings on telemetry. Nocturnal oximetry was normal therefore there is no sleep apnea. He was given a liter of IV fluid and responded nicely. He was likely volume depleted. He does admit that he does not drink nearly enough water. I suggested he drink at least 3 L daily and take regular walks and increase his daytime activity. (2) Somnolence Is this a current diagnosis for this admission?: Yes Summary: His nocturnal oximetry did not suggest any apneic episodes. An ABG did not reveal CO2 retention. There is no obvious finding however I did encourage increased activity during the day which I believe will help. I also think he will feel better with better hydration. (3) Diabetes mellitus type 2 in nonobese Is this a current diagnosis for this admission?: Yes Summary: He was returned to his metformin and Lantus. His sugars were well controlled. Continue current regimen at home. (4) Obstructive sleep apnea Is this a current diagnosis for this admission?: No Summary: Ruled out by continuous nocturnal pulse oximetry. - Additional Information Discharge Diet: Cardiac, Diabetic Discharge Activity: Activity As Tolerated Home Medications: Amlodipine Besylate [Norvasc 10 mg Tablet] 10 mg PO QPM 09/21/18 Aspirin [Adult Low Dose Aspirin EC] 81 mg PO DAILY 09/21/18 Bisoprolol Fumarate [Zebeta 5 mg Tablet] 10 mg PO DAILY 09/21/18 Citalopram Hydrobromide [Celexa 10 mg Tablet] 5 mg PO DAILY 09/21/18 Ferrous Sulfate [Feosol 325 mg Tablet] 325 mg PO DAILY 09/21/18 Finasteride [Proscar 5 mg Tablet] 5 mg PO DAILY 09/21/18 Insulin Glargine,Hum.rec.anlog [Lantus Insulin 100 Unit/mL] 40 units SQ QAM Metformin HCl [Glucophage 500 mg Tablet] 750 mg PO BID 09/21/18 Rosuvastatin Calcium [Crestor 20 mg Tablet] 20 mg PO QHS 09/21/18 History of Present Illness Patient complains of: Syncope. History of Present Illness: GONZÁLEZ PAULINO is a 83 year old male who was in his normal state of health after going to the bathroom he began walking back to his bedroom and became lightheaded after coughing. He then passed out. There was no injury due to the fall. He actually has been having unsteadiness at home. When EMS arrived on scene he was hypotensive at 70/33. He felt diffusely weak. Looking back over his records he has a history of falls. The etiology is nonspecific but he does have arthritic issues with joint pain as well. Hospital Course Hospital Course: The patient was comfortable during admission. He was monitored on telemetry. There were occasional PVCs but no obvious continuous arrhythmias. When the staff are going to sit the patient chair he had a significant drop in his blood pressure just sitting up on the edge of the bed. With all other factors negative I gave him a bolus of normal saline. He responded quite well. He had no more orthostasis after that. I did do some investigations in fact to assess other possibilities. He did have an echocardiogram that was negative for aortic stenosis. There is no evidence of sleep apnea. Other issues such as hypothyroidism and adrenal insufficiency were ruled out by blood work. The patient is feeling better today and now that certain things have been ruled out and knowing his response to IV fluids I am discharging him to home. I did encourage him to drink at least 2-3 L of fluid daily. His reports he is drinking nowhere near this volume. I also encouraged increased regular activity during the day so that he sleeps better at night and this will likely improve his daytime somnolence. Physical Exam Vital Signs: Temp Pulse Resp BP Pulse Ox 98.4 F 65 15 166/53 H 97 09/25/18 11:40 09/25/18 11:40 09/25/18 11:40 09/25/18 11:40 09/25/18 11:40 Pulse Oximeter Nocturnal Start: 09/22/18 15: 39 Freq: RTQ4 Status: Complete Document 09/23/18 04:00 SFL (Rec: 09/23/18 04:22 SFL [id number]) Nocturnal Pulse Oximetry Equipment Usage Equipment in Use Oxygen Delivery Method (includes room Room Air air) O2 Sat by Pulse Oximetry (92-100) 98 Continuous SpO2 Machine # 4 Intake & Output 09/24/18 09/25/18 09/26/18 06:59 06:59 06:59 Intake Total 1957 1082 Output Total 750 450 Balance 1207 632 Weight 74 kg 81 kg General appearance: PRESENT: no acute distress, cooperative, well-developed Head exam: PRESENT: atraumatic, normocephalic Eye exam: PRESENT: conjunctiva pink. ABSENT: scleral icterus Mouth exam: PRESENT: moist, tongue midline Neck exam: PRESENT: full ROM. ABSENT: JVD, lymphadenopathy, tracheal deviation Respiratory exam: PRESENT: clear to auscultation dilip, symmetrical, unlabored. ABSENT: crackles, rales, rhonchi, wheezes Cardiovascular exam: PRESENT: RRR, +S1, +S2 GI/Abdominal exam: PRESENT: normal bowel sounds, soft. ABSENT: distended, guarding, mass, tenderness Extremities exam: PRESENT: pedal edema Musculoskeletal exam: PRESENT: ambulatory Neurological exam: PRESENT: alert, awake, oriented to person, oriented to place , oriented to time, oriented to situation, CN II-XII grossly intact Psychiatric exam: PRESENT: appropriate affect, normal mood Results Laboratory Results: 09/22/18 03:20 09/22/18 03:20 09/21/18 09/22/18 09/22/18 20:40 03:20 03:20 Creatine Kinase 164 Troponin I < 0.012 < 0.012 09/22/18 08:57 Creatine Kinase Troponin I < 0.012 Impressions: Head CT 09/21/18 15:02 IMPRESSION: No acute findings. EVIDENCE OF ACUTE STROKE: NO. Abdomen/Pelvis CT 09/21/18 15:04 IMPRESSION: NO SIGNIFICANT OR ACUTE PROCESS IN THE ABDOMEN OR PELVIS. Carotid Doppler Study 09/22/18 00:00 IMPRESSION: No flow significant stenosis of the right carotid bifurcation. 50 to 69% diameter narrowing by velocity criteria, proximal left ICA Antegrade pulsatile vertebral artery flow bilaterally Qualifiers - * PATIENT BEING DISCHARGED WITH ANY OF THE FOLLOWING DIAGNOSIS: No Plan Discharge Plan: As outlined above. 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 In addition he should follow-up with his primary care physician. Time Spent: Greater than 30 Minutes
== END 2018-09-25 13:57 | disposition home health service (06) | DRG 641 ==
LOC: ER 11:57 → INTOOBSV 19:53 → OBSVTOIN 19:53 → EH 19:53 → 4S 23:00
PROVIDERS: ADMIT Internal Medicine; ATTEND Internal Medicine
DX: E86.0 Dehydration (principal); R55 Syncope and collapse; R40.0 Somnolence; E11.9 Type 2 diabetes mellitus without complications; G47.33 Obstructive sleep apnea (adult) (pediatric); I25.10 Atherosclerotic heart disease of native coronary artery without angina pectoris; E78.00 Pure hypercholesterolemia, unspecified; I10 Essential (primary) hypertension; F32.9 Major depressive disorder, single episode, unspecified; I25.2 Old myocardial infarction; Z95.1 Presence of aortocoronary bypass graft; Z95.5 Presence of coronary angioplasty implant and graft; Z87.891 Personal history of nicotine dependence; Z79.82 Long term (current) use of aspirin; Z79.4 Long term (current) use of insulin; Z79.899 Other long term (current) drug therapy; Z88.8 Allergy status to other drugs, medicaments and biological substances
CPT/HCPCS: 36415; 36600; 70450; 71045; 72125; 74176; 80048; 80053; 81001; 82272; 82375; 82533; 82550; 82553; 82803; 82962; 83735; 84443; 84484; 85025; 85027; 85610; 85730; 93005; 93010; 93306; 93880; 94762; 96360; 96361; 99285; G0378; G8978-GP; G8979-GP; G8987-GO; G8988-GO; G8989-GO; J1650; J1815; J7030; J7120

== ENCOUNTER → 2018-10-02 | Outpatient (CLI) | payer MEDICARE, OTHER ==
[2018-10-02 12:30] LABS: HEMATOCRIT 36.3 % (37.9-51.0); HEMOGLOBIN 12.2 g/dL (13.5-17.0); MEAN CORPUSCULAR HEMOGLOBIN 30.1 pg (27.0-33.4); MEAN CORPUSCULAR HGB CONC 33.6 g/dL (32.0-36.0); MEAN CORPUSCULAR VOLUME 90 fl (80-97); PLATELET COUNT 270 10^3/uL (150-450); RED BLOOD COUNT 4.05 10^6/uL (4.35-5.55); WHITE BLOOD COUNT 5.1 10^3/uL (4.0-10.5)
[2018-10-02 12:57] LABS: APPEARANCE,URINE CLEAR; BILIRUBIN,URINE NEGATIVE (NEGATIVE); COLOR,URINE YELLOW; GLUCOSE, URINE NEGATIVE (NEGATIVE); KETONES,URINE NEGATIVE (NEGATIVE); LEUKOCYTE ESTERASE,URINE NEGATIVE (NEGATIVE); NITRITE,URINE NEGATIVE (NEGATIVE); PROTEIN,URINE 100 mg/dL (NEGATIVE); URINE SPECIFIC GRAVITY 1.015
[2018-10-02 13:10] LABS: ANION GAP 16 (5-19); BLOOD UREA NITROGEN 18 mg/dL (7-20); CALCIUM 9.8 mg/dL (8.4-10.2); CARBON DIOXIDE 24 mmol/L (22-30); CHLORIDE 98 mmol/L (98-107); GLUCOSE 145 mg/dL (75-110); POTASSIUM 4.8 mmol/L (3.6-5.0); SODIUM 137.9 mmol/L (137-145)
[2018-10-02 13:22] LABS: UR PRO/CREAT RATIO RESULT 0.7 mg/mg (0.0-0.2); URINE PROTEIN 111.5 mg/dL (<12)
== END ==
LOC: OD 11:35
PROVIDERS: ATTEND Physician Assistant Medical
DX: N18.2 Chronic kidney disease, stage 2 (mild) (principal); D64.9 Anemia, unspecified
CPT/HCPCS: 36415; 80048; 81001; 82570; 84156; 85027

== ENCOUNTER → 2019-03-29 | Outpatient (CLI) | payer MEDICARE, OTHER ==
[2019-03-29 09:16] LABS: HEMATOCRIT 34.7 % (37.9-51.0); HEMOGLOBIN 11.5 g/dL (13.5-17.0); MEAN CORPUSCULAR HEMOGLOBIN 29.9 pg (27.0-33.4); MEAN CORPUSCULAR HGB CONC 33.2 g/dL (32.0-36.0); MEAN CORPUSCULAR VOLUME 90 fl (80-97); PLATELET COUNT 227 10^3/uL (150-450); RED BLOOD COUNT 3.85 10^6/uL (4.35-5.55); RED CELL DISTRIBUTION WIDTH 13.4 % (11.5-14.0); WHITE BLOOD COUNT 4.2 10^3/uL (4.0-10.5)
[2019-03-29 09:34] LABS: APPEARANCE,URINE CLEAR; BILIRUBIN,URINE NEGATIVE (NEGATIVE); COLOR,URINE YELLOW; GLUCOSE, URINE >=500 mg/dL (NEGATIVE); KETONES,URINE NEGATIVE (NEGATIVE); LEUKOCYTE ESTERASE,URINE NEGATIVE (NEGATIVE); NITRITE,URINE NEGATIVE (NEGATIVE); PROTEIN,URINE 100 mg/dL (NEGATIVE); UROBILINOGEN,URINE NEGATIVE mg/dL (<2.0)
[2019-03-29 09:41] LABS: ANION GAP 11 (5-19); BLOOD UREA NITROGEN 20 mg/dL (7-20); CALCIUM 9.6 mg/dL (8.4-10.2); CARBON DIOXIDE 26 mmol/L (22-30); CHLORIDE 103 mmol/L (98-107); GLUCOSE 166 mg/dL (75-110); POTASSIUM 4.3 mmol/L (3.6-5.0); SODIUM 139.6 mmol/L (137-145)
[2019-03-29 10:02] LABS: UR PRO/CREAT RATIO RESULT 0.8 mg/mg (0.0-0.2); URINE PROTEIN 129.5 mg/dL (<12)
== END ==
LOC: OD 08:02
PROVIDERS: ATTEND Internal Medicine Nephrology
DX: I12.9 Hypertensive chronic kidney disease with stage 1 through stage 4 chronic kidney disease, or unspecified chronic kidney disease (principal); N18.2 Chronic kidney disease, stage 2 (mild); E11.22 Type 2 diabetes mellitus with diabetic chronic kidney disease; D64.9 Anemia, unspecified
CPT/HCPCS: 36415; 80048; 81001; 82570; 84156; 85027

== ENCOUNTER → 2019-05-16 | Outpatient (CLI) | payer MEDICARE, OTHER ==
--- NOTE | 2019-05-17 08:42 | XCELERA REPORT ---
[address] [address] Lower Extremity Arterial Evaluation Name: GONZÁLEZ PAULINO Age: 83 yrs Gender: Male : 1935 Patient Status: Outpatient Patient Location: RAD Study Date: 05/16/2019 11:17 AM Procedure: A color flow and duplex scan of the lower extremity arteries was performed bilaterally with velocity and waveform anaylsis. Reason For Study: PVD Ordering Physician: JACQUELINE ÁLVAREZ Performed By: Prakash Meyer Measurements and Calculations Right Left SAND CAR WORKER PSV 143.0 312.3 cm/sec Prox PFA PSV -230.1 -93.7 cm/sec Prox SFA PSV 274.1 135.9 cm/sec Mid SFA PSV -124.3 -207.4cm/sec Dist SFA PSV -182.7 -135.9cm/sec Prox Pop A PSV 111.9 116.3 cm/sec Dist Pop A PSV -91.0 cm/sec Prox CARLOS PSV 56.9 66.4 cm/sec Mid CARLOS PSV -18.5 42.9 cm/sec Dist CARLOS PSV -23.2 18.3 cm/sec Dist CUSTOMER SERVICE AND SALES CONSULTANT PSV 100.7 139.9 cm/sec Kayden Pedis PSV -18.5 -62.1 cm/sec Right Side Arterial Evaluation Atherosclerotic plaque seen throughout. Stent in SAND CAR WORKER. Increased velocity and triphasic, some spectral broadening waveforms noted in the Common Femoral artery. Biphasic with slightly increased velocity, spectral broadening in the Popliteal to Posterior tibial artery. Retrograde, biphasic with some spectral broadening,decreased velocity in the Anterior tibial. Left Side Arterial Evaluation Atherosclerotic plaque seen throughout. Stent in SAND CAR WORKER and Femoral. Increased velocity and triphasic, some spectral broadening waveforms noted in the Common Femoral artery. Biphasic with slightly increased velocity, spectral broadening in the Popliteal to Posterior tibial artery. Monophasic with some spectral broadening,normal velocity in the Anterior tibial. Interpretation Summary Moderate hemodynamically significant lesions in the right lower extremity only, on duplex imaging, at rest. Severe hemodynamically significant lesions in the left lower extremity only, on duplex imaging, at rest. Duplex imaging shows diffuse, extensive atherosclerotic plaque with multi level hemodynamic consequence. Several stents are seen. These appear to be patent. : JACQUELINE ÁLVAREZ > Jacqueline Álvarez
== END ==
LOC: RAD 10:47
PROVIDERS: ATTEND Surgery
DX: I73.9 Peripheral vascular disease, unspecified (principal)
CPT/HCPCS: 93925

== ENCOUNTER 2019-08-24 02:07 | Emergency (ER) | payer MEDICARE, OTHER ==
[2019-08-24] MEDS ORDERED: IPRATROPIUM/ALBUTEROL 0.5-2.5 MG/3 ML AMPUL NEB ONE (02:58)
[2019-08-24 03:00] LABS: ABSOLUTE EOSINOPHILS # (AUTO) 0.1 10^3/uL (0.0-0.6); ABSOLUTE LYMPHOCYTES (AUTO) 1.3 10^3/uL (0.5-4.7); ABSOLUTE MONOCYTES (AUTO) 0.7 10^3/uL (0.1-1.4); ABSOLUTE NEUT (AUTO) 4.4 10^3/uL (1.7-8.2); BASOPHILS % (AUTO) 0.5 % (0-2); EOSINOPHILS % (AUTO) 1.7 % (0-6); HEMATOCRIT 33.1 % (37.9-51.0); HEMOGLOBIN 10.8 g/dL (13.5-17.0); LYMPHOCYTES % (AUTO) 19.8 % (13-45); MEAN CORPUSCULAR HEMOGLOBIN 29.9 pg (27.0-33.4); MEAN CORPUSCULAR HGB CONC 32.5 g/dL (32.0-36.0); MEAN CORPUSCULAR VOLUME 92 fl (80-97); MONOCYTES % (AUTO) 10.3 % (3-13); PLATELET COUNT 229 10^3/uL (150-450); SEGMENTED NEUTROPHILS % (AUTO) 67.7 % (42-78); TOTAL CELLS COUNTED % (AUTO) 100 %; WHITE BLOOD COUNT 6.5 10^3/uL (4.0-10.5)
[2019-08-24] MEDS ORDERED: ASPIRIN 81 MG TABLET, CHEWABLE PO ONE (03:03)
--- NOTE | 2019-08-24 03:05 | ER Document Report ---
ED General - General Chief Complaint: Breathing Difficulty Stated Complaint: DIFFICULTY BREATHING Time Seen by Provider: 08/24/19 02:51 TRAVEL OUTSIDE OF THE [place] IN LAST 30 DAYS: No - HPI Notes: Patient is an 84-year-old male who presents emergency department for evaluation of difficulty breathing. He states symptoms started yesterday. He has had a cough, has been intermittently productive. He denies any pain at this time. No nausea or vomiting. He states his been taking his medications as prescribed. - Related Data Allergies/Adverse Reactions: amiodarone [Amiodarone] Allergy (Severe, Verified 09/21/18 12:03) flashbacks Home Medications: Patient is unsure of his medications Past Medical History - General Information source: Patient, Relative, [facility] Records - Social History Smoking Status: Former Smoker Chew tobacco use (# tins/day): No Frequency of alcohol use: None Drug Abuse: None Family History: Reviewed & Not Pertinent Patient has suicidal ideation: No Patient has homicidal ideation: No - Past Medical History Cardiac Medical History: Reports: Hx Coronary Artery Disease, Hx Heart Attack, Hx Hypercholesterolemia, Hx Hypertension Endocrine Medical History: Reports: Hx Diabetes Mellitus Type 2 Renal/ Medical History: Denies: Hx Peritoneal Dialysis Psychiatric Medical History: Reports: Hx Depression Past Surgical History: Reports: Hx Abdominal Surgery - hernia, Hx Cardiac Catheterization - stents, Hx Cardiac Surgery - bypass, Hx Coronary Artery Bypass Graft - Immunizations Hx Diphtheria, Pertussis, Tetanus Vaccination: Yes Hx Pneumococcal Vaccination: 07/23/13 Review of Systems - Review of Systems Constitutional: No symptoms reported EENT: No symptoms reported Cardiovascular: See HPI Respiratory: See HPI Gastrointestinal: No symptoms reported Genitourinary: No symptoms reported Musculoskeletal: No symptoms reported Skin: No symptoms reported Neurological/Psychological: No symptoms reported Physical Exam - Vital signs Vitals: Resp Pulse Ox 29 H 94 08/24/19 02:16 08/24/19 02:16 - Notes Notes: Is a very pleasant 84-year-old male who appears her stated age, no acute distress. Vital signs reviewed, please refer to chart. Head is normocephalic, atraumatic. Pupils equal round, reactive to light. Neck is supple without meningismus. Heart is regular rate and rhythm. Patient is mildly tachypneic, with scant expiratory wheezes throughout. Abdomen is soft, nontender, normoactive bowel sounds throughout. Extremities without cyanosis, clubbing. +1 pitting edema to the ankles bilaterally. Posterior calves are nontender. Peripheral pulses are equal. Skin is warm and dry. Patient is awake, alert, neurological exam is nonfocal. Course - Re-evaluation Re-evalutation: 08/24/19 03:03 Patient is an 84-year-old gentleman who presents to the emergency department for evaluation of shortness of breath. He is brought back into the room, placed on a automation software engineer, labs and EKG obtained. EKG reveals diffuse ischemic changes, different from prior studies. He was given aspirin. At this time he is stable, oxygenating well. His blood pressure is not remarkable. Laboratory investigations obtained, breathing treatment ordered, we will continue to monitor. 08/24/19 04:37 Chest x-ray is read as showing pneumonia. He is given Rocephin and Zithromax, blood cultures obtained. EKG repeated, so was some motion artifact noted. Patient's breathing is improved. His respiratory rate is currently 20, he is 95% on room air. His heart rate is 90. I spoke with Dr. Samano regarding this patient. Given the fact that this is a diabetic patient with a positive troponin and an anginal equivalent with his shortness of breath, he does not feel it is appropriate for the patient to stay here in this facility. Will further discuss with family. 08/24/19 05:32 Patient is vital signs remained stable. His EKG continues to show ischemic changes. Second troponin is drawn and pending at this time. Patient was given aspirin, he was started on nitroglycerin drip. Patient was discussed with internal medicine physician Dr. Charley Gardner, of [facility]. She accepted the patient to a cardiac bed. 08/24/19 05:54 Patient's repeat troponin was 1.08. I did notify [facility] of this, I am awaiting phone call from either internal medicine or cardiology. - Vital Signs Vital signs: Temp Pulse Resp BP Pulse Ox 99.3 F 21 H 118/70 96 08/24/19 02:34 08/24/19 05:37 08/24/19 05:37 08/24/19 05:37 - Laboratory Result Diagrams: 08/24/19 02:45 08/24/19 02:45 Laboratory results interpreted by me: 08/24/19 08/24/19 08/24/19 02:45 02:45 02:45 RBC 3.60 L Hgb 10.8 L Hct 33.1 L Chloride 108 H Creatinine 1.35 H Est GFR (MDRD) Non-Af 50 L NT-Pro-B Natriuret Pep 2970 H - Diagnostic Test Radiology reviewed: Reports reviewed - EKG Interpretation by Me Additional EKG results interpreted by me: 08/24/19 05:34 Sinus mechanism with multiple PACs. Normal axis and intervals. ST depression anteriorly, laterally, concerning for ischemia. This is a change in compared to prior study of 2018. Critical Care Note - Critical Care Note Total time excluding time spent on procedures (mins): 40 Discharge - Discharge Clinical Impression: NSTEMI (non-ST elevated myocardial infarction) Pneumonia Qualifiers: Pneumonia type: due to unspecified organism Laterality: right Lung location: lower lobe of lung Qualified Code(s): J18.1 - Lobar pneumonia, unspecified organ ism CHF (congestive heart failure) Qualifiers: Heart failure type: unspecified Heart failure chronicity: acute Qualified Code(s): I50.9 - Heart failure, unspecified Condition: Stable Disposition: [facility] Admitting Provider: Dr. Welch
[2019-08-24 03:09] LABS: PROTHROMBIN TIME 14.2 SEC (11.4-15.4)
[2019-08-24 03:13] LABS: ALBUMIN 3.7 g/dL (3.5-5.0); ALKALINE PHOSPHATASE 61 U/L (38-126); ANION GAP 10 (5-19); ASPARTATE AMINO TRANSFERASE 23 U/L (17-59); BILIRUBIN,DIRECT 0.2 mg/dL (0.0-0.4); BILIRUBIN,TOTAL 0.5 mg/dL (0.2-1.3); BLOOD UREA NITROGEN 20 mg/dL (7-20); CALCIUM 9.1 mg/dL (8.4-10.2); CARBON DIOXIDE 25 mmol/L (22-30); CHLORIDE 108 mmol/L (98-107); GLUCOSE 100 mg/dL (75-110); TOTAL PROTEIN 6.9 g/dL (6.3-8.2)
--- NOTE | 2019-08-24 03:30 | RADIOLOGY REPORT (SQ) ---
EXAM DESCRIPTION: X-ray two view chest. CLINICAL HISTORY: 84 years Male, sob COMPARISON: 09/19/2018 TECHNIQUE: PA and Lateral views of the chest performed on 08/24/2019 at 3:33 AM FINDINGS: The lungs are well expanded. There is patchy airspace disease in the right inferior hemithorax concerning for a possible pneumonic infiltrate. There is minimal parenchymal opacification in the left inferior hemithorax. This could be related to atelectasis or inflammatory changes The costophrenic sulci are clear. There is no evidence of a pneumothorax. The cardiac silhouette is normal in size. There are remote postsurgical changes of the mediastinum with fractured sternal sutures. A coronary artery stent is noted. An internal loop recorder is also noted. The mediastinal contours are normal. No acute osseous abnormalities are identified. No focal soft tissue abnormalities are identified. IMPRESSION: 1. Patchy airspace disease in the right inferior hemithorax concerning for a pneumonic infiltrate. 2. Minimal atelectasis or inflammatory changes in the left inferior hemithorax. 3. Remote postsurgical changes of the mediastinum.
[2019-08-24] MEDS ORDERED: AZITHROMYCIN INJ 500 MG VIAL IV ONE (04:28)
[2019-08-24] MEDS ORDERED: NITROGLYCERIN/D5W 50 MG/250 ML RTUINJ IV PRN (04:50)
[2019-08-24] MEDS ORDERED: CEFTRIAXONE 1 GM/D5W RTU 1 GM/50 ML RTUPB IV ONE (05:00)
[2019-08-24] MEDS ORDERED: ENOXAPARIN SODIUM INJ 80 MG/0.8 ML DISP.SYRIN SUBCUT ONE (05:41)
--- NOTE | 2019-08-24 08:58 | EKG REPORT ---
SEVERITY:- ABNORMAL ECG - SINUS RHYTHM MULTIPLE ATRIAL PREMATURE COMPLEXES REPOL ABNRM SUGGESTS ISCHEMIA, DIFFUSE LEADS , THIS IS NEW, SINCE LAST EKG ON 09/21/18. CLINICAL PATTI ELATION NEEDED. LVH : Confirmed by: Alli Franklin MD 24-Aug-2019 08:57:58
--- NOTE | 2019-08-24 09:00 | EKG REPORT ---
SEVERITY:- ABNORMAL ECG - SINUS RHYTHM MULTIPLE ATRIAL PREMATURE COMPLEXES REPOL ABNRM SUGGESTS ISCHEMIA, DIFFUSE LEADS : Confirmed by: Alli Franklin MD 24-Aug-2019 08:59:22
[2019-08-24 11:51] VITALS: BP 125/74
--- NOTE | 2019-08-24 11:55 | ER Document Report ---
Doctor's Note Notes: Appears stable for transfer at this time. Transport team at bedside. 08/24/19 11:52
== END 2019-08-24 12:05 | disposition short-term general hospital (02) ==
LOC: ER 02:07
DX: I21.4 Non-ST elevation (NSTEMI) myocardial infarction (principal); J18.1 Lobar pneumonia, unspecified organism; I50.9 Heart failure, unspecified; E78.00 Pure hypercholesterolemia, unspecified; I11.0 Hypertensive heart disease with heart failure; E11.9 Type 2 diabetes mellitus without complications; Z95.1 Presence of aortocoronary bypass graft; I25.2 Old myocardial infarction
CPT/HCPCS: 93005; 36415; 87040; 85025; 85610; 80053; 84484; 83880; 71046; 93010; A9270 ×2; J3490; J0456; J1650; J0696; 94640; 96365; 96366; 96367; 96368; 96372; 99285; J7620

== ENCOUNTER → 2019-09-25 | Outpatient (CLI) | payer MEDICARE, OTHER ==
[2019-09-25 12:09] LABS: HEMATOCRIT 36.5 % (37.9-51.0); HEMOGLOBIN 11.8 g/dL (13.5-17.0); MEAN CORPUSCULAR HEMOGLOBIN 29.2 pg (27.0-33.4); MEAN CORPUSCULAR HGB CONC 32.2 g/dL (32.0-36.0); MEAN CORPUSCULAR VOLUME 91 fl (80-97); PLATELET COUNT 223 10^3/uL (150-450); RED BLOOD COUNT 4.03 10^6/uL (4.35-5.55); RED CELL DISTRIBUTION WIDTH 14.8 % (11.5-14.0); WHITE BLOOD COUNT 4.4 10^3/uL (4.0-10.5)
[2019-09-25 12:14] LABS: APPEARANCE,URINE CLEAR; BILIRUBIN,URINE NEGATIVE (NEGATIVE); COLOR,URINE YELLOW; GLUCOSE, URINE NEGATIVE (NEGATIVE); KETONES,URINE NEGATIVE (NEGATIVE); LEUKOCYTE ESTERASE,URINE NEGATIVE (NEGATIVE); NITRITE,URINE NEGATIVE (NEGATIVE); PROTEIN,URINE 100 mg/dL (NEGATIVE); URINE SPECIFIC GRAVITY 1.018; UROBILINOGEN,URINE NEGATIVE mg/dL (<2.0)
[2019-09-25 12:36] LABS: ANION GAP 10 (5-19); BLOOD UREA NITROGEN 20 mg/dL (7-20); CALCIUM 9.2 mg/dL (8.4-10.2); CARBON DIOXIDE 27 mmol/L (22-30); CHLORIDE 102 mmol/L (98-107); GLUCOSE 150 mg/dL (75-110); POTASSIUM 5.1 mmol/L (3.6-5.0)
[2019-09-25 12:40] LABS: UR PRO/CREAT RATIO RESULT 0.3 mg/mg (0.0-0.2); URINE CREATININE 180.8 mg/dL (22-328); URINE PROTEIN 49.2 mg/dL (<12)
== END ==
LOC: OD 10:56
PROVIDERS: ATTEND Internal Medicine Nephrology
DX: E11.22 Type 2 diabetes mellitus with diabetic chronic kidney disease (principal); I12.9 Hypertensive chronic kidney disease with stage 1 through stage 4 chronic kidney disease, or unspecified chronic kidney disease; N18.2 Chronic kidney disease, stage 2 (mild); R80.9 Proteinuria, unspecified
CPT/HCPCS: 36415; 80048; 81001; 82570; 84156; 85027

== ENCOUNTER 2019-12-19 01:43 | Emergency (ER) | payer MEDICARE, OTHER ==
--- NOTE | 2019-12-19 02:53 | RADIOLOGY REPORT (SQ) ---
EXAM DESCRIPTION: CT CERVICAL SPINE WITHOUT IV CONTRAST COMPLETED DATE/TME: 12/19/2019 00:00 CLINICAL HISTORY: 84 years, Male, fall/on blood thinners COMPARISON: None. TECHNIQUE: Images stored on PACS. All CT scanners at this facility use dose modulation, iterative reconstruction, and/or weight based dosing when appropriate to reduce radiation dose to as low as reasonably achievable (ALARA). [facility]: Dose Right [facility]: CareDose [facility]: Dose Right [facility]: Teradose 4D [facility]: Dympol LIMITATIONS: None. FINDINGS: No acute displaced fracture. Straightening of the normal cervical lordosis. Significant multilevel uncovertebral and facet osteoarthritis. Vascular calcification to include carotid calcification. Chronic changes at the lung apices. Thyroid is homogeneous. IMPRESSION: Osteoarthritis. No acute fracture is seen of the cervical spine TECHNICAL DOCUMENTATION: Quality ID # 436: Final reports with documentation of one or more dose reduction techniques (e.g., Automated exposure control, adjustment of the mA and/or kV according to patient size, use of iterative reconstruction technique) copyright 2011 [employer]- All Rights Reserved
--- NOTE | 2019-12-19 02:55 | RADIOLOGY REPORT (SQ) ---
EXAM DESCRIPTION: CT HEAD WITHOUT IV CONTRAST COMPLETED DATE/TME: 12/19/2019 00:00 CLINICAL HISTORY: 84 years, Male, fall/on blood thinners COMPARISON: September 21, 2018 TECHNIQUE: Images stored on PACS. All CT scanners at this facility use dose modulation, iterative reconstruction, and/or weight based dosing when appropriate to reduce radiation dose to as low as reasonably achievable (ALARA). [facility]: Dose Right [facility]: CareDose [facility]: Dose Right [facility]: Teradose 4D [facility]: [employer] LIMITATIONS: None. FINDINGS: No acute intracranial hemorrhage. Basal ganglia mineralization. Lima-white differential is normal. Age-related involutional changes are identified. Presumed old small vessel ischemic changes are seen predominantly in a periventricular distribution. Paranasal sinuses are clear. Orbits and eyeballs are unremarkable. Carotid calcification is seen. Mastoid air cells are clear. IMPRESSION: No acute intracranial process. No adverse change when compared to prior. Age-related involutional changes are identified. Presumed old small vessel ischemic changes are seen predominantly in a periventricular distribution. TECHNICAL DOCUMENTATION: Quality ID # 436: Final reports with documentation of one or more dose reduction techniques (e.g., Automated exposure control, adjustment of the mA and/or kV according to patient size, use of iterative reconstruction technique) copyright 2011 [employer]- All Rights Reserved
[2019-12-19] MEDS ORDERED: ACETAMINOPHEN 325 MG TABLET PO ONE (10:05)
--- NOTE | 2019-12-19 10:51 | RADIOLOGY REPORT (SQ) ---
EXAM DESCRIPTION: HAND LEFT 3 VIEWS COMPLETED DATE/TIME: 12/19/2019 10:33 am REASON FOR STUDY: foosh COMPARISON: None. EXAM PARAMETERS: NUMBER OF VIEWS: Three views. TECHNIQUE: AP, lateral and oblique radiographic images acquired of the left hand. LIMITATIONS: None. FINDINGS: MINERALIZATION: Normal. BONES: Acute comminuted fracture of the 5th middle phalanx. There is also concern for an acute nondi splaced intra-articular fracture of the distal aspect of the 5th proximal phalanx. JOINTS: No dislocation of the 5th IP joints. SOFT TISSUES: Soft tissue swelling around the 5th digit. OTHER: No other finding. IMPRESSION: 1. Acute comminuted fracture of the 5th middle phalanx. 2. Probable nondisplaced intra-articular fracture of the distal aspect of the 5th proximal phalanx. There is no dislocation of the 5th PIP joint. TECHNICAL DOCUMENTATION: JOB ID: [id number] 2010 [employer]- All Rights Reserved Reading location - IP/workstation name: [email or web address]
[2019-12-19 11:26] VITALS: BP 130/76
--- NOTE | 2019-12-19 16:05 | ER Document Report ---
Entered by GUILLERMO ESTEBAN SCRIBE 12/19/19 [id number] Acting as scribe for:GUERDA KILPATRICK DO ED Fall - General Chief Complaint: Fall Injury Stated Complaint: FALL/HEAD INJURY Time Seen by Provider: 12/19/19 08:02 Primary Care Provider: BECKA JUNE MD [ACTIVE PROVISIONAL STAFF] - Follow up as needed YOANNA LIMON MD [Primary Care Provider] - Follow up as needed Mode of Arrival: Ambulatory Information source: Patient Notes: This 84-year-old male patient presents to the emergency department today after falling when trying to get back into bed this morning. Patient had gotten out of bed to go to the bathroom and fell on his return. Patient describes the fall as a mechanical fall tripping over his bed comforter. Patient hit the right side of his head and has left thumb pain. Patient did not vomit. Patient is on Plavix. TRAVEL OUTSIDE OF THE [place] 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, Hx Hypercholesterolemia, Hx Hypertension Endocrine Medical History: Reports: Hx Diabetes Mellitus Type 2 Psychiatric Medical History: Reports: Hx Depression Past Surgical History: Reports: Hx Abdominal Surgery - hernia, Hx Cardiac Catheterization - stents, Hx Cardiac Surgery - bypass, Hx Coronary Artery Bypass Graft - Immunizations Hx Diphtheria, Pertussis, Tetanus Vaccination: Yes Hx Pneumococcal Vaccination: 07/23/13 Review of Systems - Review of Systems Constitutional: See HPI, Other - fall EENT: No symptoms reported Cardiovascular: No symptoms reported Respiratory: No symptoms reported Gastrointestinal: denies: Vomiting Genitourinary: No symptoms reported Male Genitourinary: No symptoms reported Musculoskeletal: See HPI, Other - left thumb pain Skin: No symptoms reported Hematologic/Lymphatic: No symptoms reported Neurological/Psychological: No symptoms reported -: Yes All other systems reviewed and negative Physical Exam - Vital signs Vitals: Temp Pulse Resp BP Pulse Ox 98.5 F 73 20 136/45 H 100 12/19/19 01:49 12/19/19 01:49 12/19/19 01:49 12/19/19 01:49 12/19/19 01:49 - Notes Notes: Physical Exam: General: Alert, appears well. HEENT: Normocephalic. Atraumatic. PERRL. Extraocular movements intact. Oropharynx clear. Fundascopic exam is normal. Neck: Supple. Non-tender. Respiratory: No respiratory distress. Clear and equal breath sounds bilaterally. Cardiovascular: Regular rate and rhythm. Abdominal: Normal Inspection. Non-tender. No distension. Normal Bowel Sounds. Back: No gross abnormalities. Extremities: Moves all four extremities. Upper extremities: There is soft tissue swelling with associated tenderness to palpation of left dorsal thumb. There is no deformity. Lower extremities: Normal inspection. No edema. Normal ROM. Neurological: Normal cognition. AAOx4. Normal speech. Psychological: Normal affect. Normal Mood. Skin: Warm. Dry. Normal color. Course - Vital Signs Vital signs: Temp Pulse Resp BP Pulse Ox 98.1 F 76 16 130/76 H 99 12/19/19 11:25 12/19/19 11:25 12/19/19 11:25 12/19/19 11:25 12/19/19 11:25 Discharge - Discharge Clinical Impression: Left hand pain Fall Qualifiers: Encounter type: initial encounter Qualified Code(s): W19.XXXA - Unspecified fall, initial encounter Condition: Good Disposition: HOME, SELF-CARE Instructions: Contusion ([facility]), Ice & Elevation ([facility]), Ice Massage ([facility]), Ice Packs ([facility]) Additional Instructions: Rest, ice and elevate your left hand. Take tylenol for pain. Please return here for chest pain shortness of breath or other problems or concerns. Referrals: YOANNA LIMON MD [Primary Care Provider] - Follow up as needed BECKA JUNE MD [ACTIVE PROVISIONAL STAFF] - Follow up as needed I personally performed the services described in the documentation, reviewed and edited the documentation which was dictated to the scribe in my presence, and it accurately records my words and actions.
== END 2019-12-19 11:24 | disposition home or self-care (01) ==
LOC: ER 01:43
DX: M79.645 Pain in left finger(s) (principal); M79.89 Other specified soft tissue disorders; W19.XXXA Unspecified fall, initial encounter; Y93.89 Activity, other specified; Y92.003 Bedroom of unspecified non-institutional (private) residence as the place of occurrence of the external cause; I25.10 Atherosclerotic heart disease of native coronary artery without angina pectoris; I10 Essential (primary) hypertension; E11.9 Type 2 diabetes mellitus without complications; Z95.1 Presence of aortocoronary bypass graft; Z95.5 Presence of coronary angioplasty implant and graft; Z79.02 Long term (current) use of antithrombotics/antiplatelets; Z87.891 Personal history of nicotine dependence; Z88.8 Allergy status to other drugs, medicaments and biological substances
CPT/HCPCS: 99284; 73130; 70450; 72125; A9270

== ENCOUNTER 2020-02-27 14:08 | Emergency (ER) | payer MEDICARE, OTHER ==
--- NOTE | 2020-02-27 14:39 | ER Document Report ---
ED Medical Screen (RME) - General Chief Complaint: S/S of Possible Stroke Stated Complaint: POSSIBLE STROKE Primary Care Provider: YOANNA LIMON MD [Primary Care Provider] - Follow up as needed TRAVEL OUTSIDE OF THE [place] IN LAST 30 DAYS: No - HPI Notes: 02/27/20 14:36 84-year-old male with a history of type 2 diabetes, [place] 2019 presents to the emergency room via private vehicle for concerns of AMS and weakness. Patient was evaluated curbside for concerns of stroke. Daughter stated that last night he started to act confused they thought he may have just been dehydrated but noticed today he was forgetful and noticed some weakness on the right side of his body. Patient ambulated from car to wheelchair with a cane and assistance. Denies any fevers chills, chest pain shortness of breath abdominal pain, nausea vomiting. Brief assessment was done I have greeted and performed a rapid initial assessment of this patient. A comprehensive ED assessment and evaluation of the patient, analysis of test results and completion of the medical decision making process will be conducted by additional ED providers. PHYSICAL EXAMINATION: GENERAL: Chronically ill-appearing well-nourished and in no acute distress. HEAD: Atraumatic, normocephalic. EYES: Pupils equal round extraocular movements intact, conjunctiva are normal. LUNGS: No respiratory distress Musculoskeletal: Normal range of motion NEUROLOGICAL: Normal speech, PERRLA, EOMI. Tongue midline. Neck with APROM. Raises eyebrows. No dysphasia or aphasia. No pronator drift noted. strength is 5 out of 5 in bilateral upper and lower extremities equally.Speaks in full sentences. No weakness on one side. 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, Hx Hypercholesterolemia, Hx Hypertension Endocrine Medical History: Reports: Hx Diabetes Mellitus Type 1, Hx Diabetes Mellitus Type 2 Renal/ Medical History: Denies: Hx Peritoneal Dialysis Psychiatric Medical History: Reports: Hx Depression Past Surgical History: Reports: Hx Abdominal Surgery - hernia, Hx Cardiac Catheterization - stents, Hx Cardiac Surgery - bypass, Hx Coronary Artery Bypass Graft - Immunizations Hx Diphtheria, Pertussis, Tetanus Vaccination: Yes Physical Exam - Vital signs Vitals: Temp Pulse Resp BP Pulse Ox 98.0 F 63 18 146/56 H 100 02/27/20 14:15 02/27/20 14:15 02/27/20 14:15 02/27/20 14:15 02/27/20 14:15 Course - Vital Signs Vital signs: Temp Pulse Resp BP Pulse Ox 98.0 F 63 18 146/56 H 100 02/27/20 14:15 02/27/20 14:15 02/27/20 14:15 02/27/20 14:15 02/27/20 14:15 Doctor's Discharge - Discharge Referrals: YOANNA LIMON MD [Primary Care Provider] - Follow up as needed
--- NOTE | 2020-02-27 15:03 | RADIOLOGY REPORT (SQ) ---
EXAM DESCRIPTION: CHEST SINGLE VIEW IMAGES COMPLETED DATE/TIME: 02/27/2020 2:54 pm REASON FOR STUDY: AMS COMPARISON: 08/24/2019 EXAM PARAMETERS: NUMBER OF VIEWS: One view. TECHNIQUE: Single frontal radiographic view of the chest acquired. RADIATION DOSE: NA LIMITATIONS: None. FINDINGS: LUNGS AND PLEURA: No opacities, masses or pneumothorax. No pleural effusion. MEDIASTINUM AND HILAR STRUCTURES: No masses. Contour normal. HEART AND VASCULAR STRUCTURES: Heart normal in size. Normal vasculature. BONES: No acute findings. HARDWARE: Loop recorder remains in place. OTHER: No other significant finding. IMPRESSION: NO ACUTE RADIOGRAPHIC FINDING IN THE CHEST. TECHNICAL DOCUMENTATION: JOB ID: [id number] 2010 [employer]- All Rights Reserved Reading location - IP/workstation name: [email or web address]
[2020-02-27 15:11] LABS: ABSOLUTE EOSINOPHILS # (AUTO) 0.1 10^3/uL (0.0-0.6); ABSOLUTE LYMPHOCYTES (AUTO) 1.2 10^3/uL (0.5-4.7); ABSOLUTE MONOCYTES (AUTO) 0.4 10^3/uL (0.1-1.4); BASOPHILS % (AUTO) 0.7 % (0-2); EOSINOPHILS % (AUTO) 1.7 % (0-6); HEMATOCRIT 36.8 % (37.9-51.0); HEMOGLOBIN 12.4 g/dL (13.5-17.0); LYMPHOCYTES % (AUTO) 26.1 % (13-45); MEAN CORPUSCULAR HEMOGLOBIN 31.3 pg (27.0-33.4); MEAN CORPUSCULAR HGB CONC 33.8 g/dL (32.0-36.0); MEAN CORPUSCULAR VOLUME 93 fl (80-97); MONOCYTES % (AUTO) 8.2 % (3-13); PLATELET COUNT 275 10^3/uL (150-450); RED BLOOD COUNT 3.97 10^6/uL (4.35-5.55); RED CELL DISTRIBUTION WIDTH 13.4 % (11.5-14.0); SEGMENTED NEUTROPHILS % (AUTO) 63.3 % (42-78); TOTAL CELLS COUNTED % (AUTO) 100 %; WHITE BLOOD COUNT 4.8 10^3/uL (4.0-10.5)
--- NOTE | 2020-02-27 15:15 | RADIOLOGY REPORT (SQ) ---
EXAM DESCRIPTION: CT HEAD WITHOUT IMAGES COMPLETED DATE/TIME: 02/27/2020 3:02 pm REASON FOR STUDY: AMS COMPARISON: 01/17/2020 TECHNIQUE: Axial images acquired through the brain without intravenous contrast. Images reviewed wi th bone, brain and subdural windows. Additional sagittal and coronal reconstructions were generated. Images stored on PACS. All CT scanners at this facility use dose modulation, iterative reconstruction, and/or weight based d osing when appropriate to reduce radiation dose to as low as reasonably achievable (ALARA). [facility]: Dose Right [facility]: CareDose [facility]: Dose Right [facility]: Teradose 4D [facility]: Smart Y[employer]Connect RADIATION DOSE: CT Rad equipment meets quality standard of care and radiation dose reduction techniq ues were employed. CTDIvol: 53.2 mGy. DLP: 1044 mGy-cm. mGy. LIMITATIONS: None. FINDINGS: VENTRICLES: Normal size and contour. CEREBRUM: No masses. No hemorrhage. No midline shift. No evidence for acute infarction. Normal gra y/white matter differentiation. No areas of low density in the white matter. CEREBELLUM: No masses. No hemorrhage. No alteration of density. No evidence for acute infarction. EXTRAAXIAL SPACES: There is a left-sided subdural hematoma. This measures up to 20 mm in greatest di ameter. There is mass effect with effacement of the left-sided cortical sulci. No midline shift. T here appear to be both acute and chronic components. This is a new finding when compared to prior ex am. ORBITS AND GLOBE: No intra- or extraconal masses. Normal contour of globe without masses. CALVARIUM: No fracture. PARANASAL SINUSES: No fluid or mucosal thickening. SOFT TISSUES: No mass or hematoma. OTHER: No other significant finding. IMPRESSION: Left-sided subdural hematoma. This measures up to 20 mm in greatest transverse dimensio n. The collection extends 9.3 cm anteriorly to posteriorly. The collection contains both acute and chronic components. There is mass effect with effacement of left-sided cortical sulci. No midline s hift. EVIDENCE OF ACUTE STROKE: NO. COMMENT: Pertinent findings on the imaging study reported as a CRITICAL RESULT to EVIE Gonzalez at15:07 on 02/27/2020. Category of Critical Result: Intracranial hemorrhage. Quality ID # [id number]: Final reports with documentation of one or more dose reduction techniques (e.g., Au tomated exposure control, adjustment of the mA and/or kV according to patient size, use of iterative reconstruction technique) TECHNICAL DOCUMENTATION: JOB ID: [id number] 2010 [employer]- All Rights Reserved Reading location - IP/workstation name: [email or web address]
[2020-02-27 15:28] LABS: ALBUMIN 4.3 g/dL (3.5-5.0); ALKALINE PHOSPHATASE 70 U/L (38-126); ANION GAP 11 (5-19); ASPARTATE AMINO TRANSFERASE 23 U/L (17-59); BILIRUBIN,TOTAL 0.5 mg/dL (0.2-1.3); BLOOD UREA NITROGEN 19 mg/dL (7-20); CALCIUM 9.4 mg/dL (8.4-10.2); CARBON DIOXIDE 24 mmol/L (22-30); CHLORIDE 99 mmol/L (98-107); GLUCOSE 209 mg/dL (75-110); TOTAL PROTEIN 7.7 g/dL (6.3-8.2)
[2020-02-27 15:48] LABS: INTERNATIONAL RATION (INR) 1.08
[2020-02-27 15:49] LABS: PARTIAL THROMBOPLASTIN TIME 31.4 SEC (23.5-35.8)
--- NOTE | 2020-02-27 16:26 | ER Document Report ---
ED General - General Chief Complaint: S/S of Possible Stroke Stated Complaint: POSSIBLE STROKE Time Seen by Provider: 02/27/20 15:10 Primary Care Provider: YOANNA LIMON MD [Primary Care Provider] - Follow up as needed Mode of Arrival: Wheelchair Information source: Patient, Relative Cannot obtain history due to: Altered mental status Notes: Patient is an 84-year-old male presenting to the emergency department chief complaint of altered mental status and confusion. states it seems to have started today patient is also complaining of his fifth digits on both hands are hurting. states there is a remote history of a fall but that was back in November. Patient denies nausea vomiting diarrhea fevers chills cough or cold symptoms patient does answer questions but does demonstrate some word finding difficulties. At time of presentation patient was initiated as a stroke protocol. TRAVEL OUTSIDE OF THE [place] IN LAST 30 DAYS: No - HPI Onset: This morning Onset/Duration: Gradual, Worse Quality of pain: Achy Severity: Mild Pain Level: 1 Associated symptoms: Headache, Slow to respond, Weakness. denies: Nonproductive cough, Productive cough, Diarrhea, Nausea, Vomiting Exacerbated by: Denies Relieved by: Denies Similar symptoms previously: No Recently seen / treated by doctor: No - Related Data Allergies/Adverse Reactions: amiodarone [Amiodarone] Allergy (Severe, Verified 12/19/19 01:50) flashbacks Past Medical History - General Information source: Patient, Relative Cannot obtain history due to: Altered mental status - Social History Smoking Status: Former Smoker Cigarette use (# per day): No Chew tobacco use (# tins/day): No Smoking Education Provided: No Frequency of alcohol use: None Drug Abuse: None Lives with: Family Family History: Reviewed & Not Pertinent Patient has suicidal ideation: No Patient has homicidal ideation: No - Past Medical History Cardiac Medical History: Reports: Hx Coronary Artery Disease, 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, Hx Hypercholesterolemia, Hx Hypertension Endocrine Medical History: Reports: Hx Diabetes Mellitus Type 1, Hx Diabetes Mellitus Type 2 Renal/ Medical History: Denies: Hx Peritoneal Dialysis Psychiatric Medical History: Reports: Hx Depression Past Surgical History: Reports: Hx Abdominal Surgery - hernia, Hx Cardiac Catheterization - stents, Hx Cardiac Surgery - bypass, Hx Coronary Artery Bypass Graft - Immunizations Hx Diphtheria, Pertussis, Tetanus Vaccination: Yes Hx Pneumococcal Vaccination: 07/23/13 Review of Systems - Review of Systems Notes: REVIEW OF SYSTEMS: CONSTITUTIONAL : Per HPI EENT: Denies eye, ear, throat, or mouth pain or symptoms. Denies nasal or sinus congestion. CARDIOVASCULAR: Denies chest pain. RESPIRATORY: Denies cough, cold, or chest congestion. Denies shortness of breath, difficulty breathing, or wheezing. GASTROINTESTINAL: Denies abdominal pain. Denies nausea, vomiting, or diarrhea. Denies constipation. GENITOURINARY: Denies difficulty urinating, painful urination, burning, frequency, or blood in urine. MUSCULOSKELETAL: Denies neck or back pain or joint pain or swelling. SKIN: Denies rash or skin lesions. HEMATOLOGIC : Denies easy bruising or bleeding. NEUROLOGICAL: Per HPI PSYCHIATRIC: Denies suicidal or homicidal ideations 10 Systems are negative unless otherwise specified above Physical Exam - Vital signs Vitals: Pulse Resp BP Pulse Ox 58 L 17 172/94 H 100 02/27/20 14:08 02/27/20 14:08 02/27/20 14:08 02/27/20 14:08 - Notes Notes: PHYSICAL EXAMINATION: GENERAL: Well-appearing, well-nourished and in no acute distress. HEAD: Atraumatic, normocephalic. EYES: Pupils equal round and reactive to light, extraocular movements intact, sclera anicteric, conjunctiva are normal. ENT: nares patent, oropharynx clear without exudates. Moist mucous membranes. NECK: Normal range of motion, supple without lymphadenopathy, no appreciable JVD LUNGS: Lungs clear to auscultation bilaterally and equal. No wheezes rales or rhonchi. HEART: Bradycardic rate and rhythm without murmurs ABDOMEN: Soft, nontender, normal bowel sounds. No guarding, no rebound. No masses appreciated. EXTREMITIES: Active full range of motion, no pitting or edema. No cyanosis. 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 SKIN: Warm, Dry, and intact. Normal turgor, no rashes or lesions noted. Course - Re-evaluation Re-evalutation: 02/27/20 16:35 Was contacted right after the patient had CAT scan performed and advised that he had a left-sided subdural hematoma. Hematoma is approximately 20 mm transverse and 9.3 cm anterior to posterior there is no shift at this time. We immediately contacted [facility] and I spoke with MANNY Mcgarry for neurosurgery who after discussing the case and reviewing the patient's radiologic studies is agreeable with accepting the patient for transfer for Dr Fulton. Basic laboratory studies and portable chest x-ray were obtained. 02/27/20 16:37 EKG demonstrated normal sinus rhythm rate of 58 bpm no axis deviation no ectopy. We were able to secure transportation from this location and patient will be transferred to the receiving facility via [facility] in stable condition patient and are agreeable with care plan. 02/27/20 16:38 - Vital Signs Vital signs: Temp Pulse Resp BP Pulse Ox 98.0 F 63 13 172/94 H 100 02/27/20 14:31 02/27/20 14:15 02/27/20 15:32 02/27/20 15:32 02/27/20 15:32 - Laboratory Result Diagrams: 02/27/20 14:45 02/27/20 14:45 Laboratory results interpreted by me: 02/27/20 02/27/20 14:45 14:45 RBC 3.97 L Hgb 12.4 L Hct 36.8 L Sodium 134.0 L Creatinine 1.27 H Est GFR (MDRD) Non-Af 54 L Glucose 209 H - Diagnostic Test Radiology reviewed: Image reviewed, Reports reviewed Critical Care Note - Critical Care Note Total time excluding time spent on procedures (mins): 35 Comments: Please allow 35 minutes of critical care time spent obtaining history from patient or surrogate, discussions with consultants, development of treatment plan with patient or surrogate, evaluation of patient's response to treatment, examination of patient. This also includes ordering and reviewing laboratory, EKG and / or radiologic studies, performing and reassessing treatments and interventions as well as reviewing previous visits and old charts. This is exclusive of separately billable procedures. Discharge - Discharge Clinical Impression: Subdural hematoma Disposition: [facility] Referrals: YOANNA LIMON MD [Primary Care Provider] - Follow up as needed
[2020-02-27 16:37] VITALS: BP 175/87
[2020-02-27] MEDS ORDERED: LEVETIRACETAM 500 MG/NACL-ISO 500 MG/100 ML RTUPB IV ONE ×2 (16:41→16:42)
--- NOTE | 2020-02-27 21:38 | EKG REPORT ---
SEVERITY:- ABNORMAL ECG - SINUS RHYTHM NONSPECIFIC ST-T CHANGES- LATERAL LEADS LA ENLARGEMENT : Confirmed by: Alli Franklin MD 27-Feb-2020 21:38:36
== END 2020-02-27 16:44 | disposition short-term general hospital (02) ==
LOC: ER 14:08
DX: S06.5X9A Traumatic subdural hemorrhage with loss of consciousness of unspecified duration, initial encounter (principal); X58.XXXA Exposure to other specified factors, initial encounter; R41.0 Disorientation, unspecified; R20.0 Anesthesia of skin; M79.644 Pain in right finger(s); M79.645 Pain in left finger(s); R51 Headache; R29.818 Other symptoms and signs involving the nervous system; R53.1 Weakness; I25.10 Atherosclerotic heart disease of native coronary artery without angina pectoris; I10 Essential (primary) hypertension; I25.2 Old myocardial infarction; E11.9 Type 2 diabetes mellitus without complications; Z88.8 Allergy status to other drugs, medicaments and biological substances; Z87.891 Personal history of nicotine dependence; Z95.5 Presence of coronary angioplasty implant and graft; Z95.1 Presence of aortocoronary bypass graft
CPT/HCPCS: 93005; 99291; 96374; 36415; 83690; 85025; 85610; 85730; 80053; 84484; 71045; 70450; 93010; J1953

== ENCOUNTER 2020-09-22 21:49 | Emergency (ER) | payer MEDICARE, OTHER ==
--- NOTE | 2020-09-22 22:34 | ER Document Report ---
ED Medical Screen (RME) - General Chief Complaint: Fall Injury Stated Complaint: FINGER AND HEAD INJURY Time Seen by Provider: 09/22/20 22:23 Primary Care Provider: Mis BARBA MD [Primary Care Provider] - Follow up as needed TRAVEL OUTSIDE OF THE [place] IN LAST 30 DAYS: No - HPI Notes: 09/22/20 22:32 85-year-old male to the emergency department with complaints of a finger deformity and fall that occurred just prior to arrival. Apparently he was walking when he fell backwards. He states he did hit his head. He denies any loss of consciousness. He states he did not feel dizzy or have any chest pain or shortness of breath. He states he was holding a drink in his hand and he thinks that he was trying to hold onto the cup and dislocated his left ring finger. He is right-hand dominant. He is on Plavix. He denies any other symptoms. Brief medical screening exam illustrates a dislocation of the left ring finger at the PIP joint. There is no evidence for laceration here. There is no laceration to the scalp. There is a ring to the left finger. We were able to cut it off easily in triage. I performed a brief medical screening exam on the patient determined that the patient needs further evaluation and management by main side provider. I have placed initial orders to help expedite care. 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, Hx Hypercholesterolemia, Hx Hypertension Endocrine Medical History: Reports: Hx Diabetes Mellitus Type 1, Hx Diabetes Mellitus Type 2 Renal/ Medical History: Denies: Hx Peritoneal Dialysis Psychiatric Medical History: Reports: Hx Depression Past Surgical History: Reports: Hx Abdominal Surgery - hernia, Hx Cardiac Catheterization - stents, Hx Cardiac Surgery - bypass, Hx Coronary Artery Bypass Graft - Immunizations Hx Diphtheria, Pertussis, Tetanus Vaccination: Yes Physical Exam - Vital signs Vitals: Temp Pulse Resp BP Pulse Ox 98.6 F 66 18 162/64 H 100 09/22/20 21:54 09/22/20 21:54 09/22/20 21:54 09/22/20 21:54 09/22/20 21:54 Course - Vital Signs Vital signs: Temp Pulse Resp BP Pulse Ox 98.6 F 66 18 162/64 H 100 09/22/20 21:54 09/22/20 21:54 09/22/20 21:54 09/22/20 21:54 09/22/20 21:54 Doctor's Discharge - Discharge Referrals: Mis BARBA MD [Primary Care Provider] - Follow up as needed
--- NOTE | 2020-09-22 23:49 | RADIOLOGY REPORT (SQ) ---
Left hand x-ray three views on 09/22/2020 11:00 PM CLINICAL INDICATION: Finger dislocation, pain COMPARISON: 12/19/2019 FINDINGS: There is dislocation of the fourth PIP joint with medial and proximal dislocation of the fourth middle phalanx in relation to the fourth proximal phalanx. Previously noted fracture of the fifth middle phalanx has healed in the interim. No definite new fracture is noted but would recommend reimaging after reduction. No other dislocation is noted. IMPRESSION: Dislocation of the fourth PIP joint. Recommend reimaging after reduction.
--- NOTE | 2020-09-22 23:56 | RADIOLOGY REPORT (SQ) ---
CT head without contrast on 09/22/2020 at 11:05 PM CLINICAL INDICATION: Fall, head injury, patient on blood thinners, per protocol for mechanism of injury TECHNIQUE: Multiple axial images are obtained throughout the head without the administration of contrast. This exam was performed according to our departmental dose-optimization program, which includes automated exposure control, adjustment of the mA and/or kV according to patient size and/or use of iterative reconstruction technique. Total DLP is 963.96 mGy*cm. COMPARISON: 02/27/2020 FINDINGS: There is generalized cerebral atrophy. Bilateral basal ganglia calcifications are noted. There is low density in the periventricular white matter consistent with chronic small vessel ischemic changes. There is no hydrocephalus. There is no hemorrhage. There are no abnormal extra-axial fluid collections. There is no mass, mass effect or midline shift. There is no CT evidence of acute infarct. No bony abnormality is noted. IMPRESSION: Atrophy and chronic small vessel ischemic changes with no acute intracranial abnormality.
[2020-09-23] MEDS ORDERED: BUPIVACAINE HCL 0.5 % INJ/PF 30 ML SDV INJ ONE (00:18)
[2020-09-23] MEDS ORDERED: LIDOCAINE 2% INJ (20 MG/ML) 20 ML MDV INJ ONE (00:18)
--- NOTE | 2020-09-23 01:14 | ER Document Report ---
ED General - General Chief Complaint: Finger Injury Stated Complaint: FINGER AND HEAD INJURY Time Seen by Provider: 09/22/20 22:23 Primary Care Provider: Mis BARBA MD [Primary Care Provider] - Follow up as needed Mode of Arrival: Ambulatory Notes: Patient presents to the ER for evaluation of headache with left fourth finger deformity after a slip and fall that occurred immediately prior to arrival. The patient states he was walking when he fell backwards and struck his head. He states he was carrying a glass at the time of the fall and he attributes this to his finger dislocation. He denies weakness or numbness. He is ambulatory without assistance. He denies neck or back pain. He denies loss of bowel or bladder. He does not take anticoagulation therapy. Nursing notes reviewed and past medical, social, and family histories reviewed and validated. TRAVEL OUTSIDE OF THE [place] 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, Hx Hypercholesterolemia, Hx Hypertension Pulmonary Medical History: Reports: None EENT Medical History: Reports: None Neurological Medical History: Reports: None Endocrine Medical History: Reports: Hx Diabetes Mellitus Type 1, Hx Diabetes Mellitus Type 2 Renal/ Medical History: Denies: Hx Peritoneal Dialysis Malignancy Medical History: Reports None GI Medical History: Reports: None Musculoskeletal Medical History: Reports None Skin Medical History: Reports None Psychiatric Medical History: Reports: Hx Depression Traumatic Medical History: Reports: None Infectious Medical History: Reports: None Past Surgical History: Reports: Hx Abdominal Surgery - hernia, Hx Cardiac Catheterization - stents, Hx Cardiac Surgery - bypass, Hx Coronary Artery Bypass Graft - Immunizations Immunizations up to date: Yes Hx Diphtheria, Pertussis, Tetanus Vaccination: Yes Hx Pneumococcal Vaccination: 07/23/13 Review of Systems - Review of Systems Notes: Constitutional: Negative for fever. HENT: Negative for sore throat. Eyes: Negative for visual changes. Cardiovascular: Negative for chest pain. Respiratory: Negative for shortness of breath. Gastrointestinal: Negative for abdominal pain, vomiting or diarrhea. Genitourinary: Negative for dysuria. Musculoskeletal: Positive finger deformity. Skin: Negative for rash. Neurological: Positive for headache. 10 point ROS negative except as marked above and in HPI. Physical Exam - Vital signs Vitals: Temp Pulse Resp BP Pulse Ox 98.6 F 66 18 162/64 H 100 09/22/20 21:54 09/22/20 21:54 09/22/20 21:54 09/22/20 21:54 09/22/20 21:54 - Notes Notes: CONSTITUTIONAL: Well appearing. No acute distress. SKIN: Warm, dry, and intact without rash EYES: Extraocular movements are grossly intact, clear conjunctiva HENT: Normocephalic, atraumatic, moist mucus membranes NECK: No obvious swelling, normal range of motion PULMONARY: Normal chest rise and fall. Breath sounds clear and equal bilaterally. No respiratory distress or stridor CARDIOVASCULAR: Regular rate. No murmurs, rubs, gallops. Distal extremities are warm and well perfused. ABDOMINAL: Soft, nontender NEUROLOGIC: Normal speech, moves all extremities. Cranial nerves are within normal limits. Construction Stonemason strength strong and equal in the upper extremities bilaterally. There is good strength and sensation in bilateral lower extremities. There is no arm or leg drift noted. MUSCULOSKELETAL: There is a lateral deformity to the left fourth finger at the level of the PIP. Good distal CMS. PSYCHIATRIC: Normal mood and affect Course - Re-evaluation Re-evalutation: 09/23/20 01:14 Rechecked patient who has responded well to treatment in the ER. The patient states his headache has resolved. The patient does have an orthopedic physician and agrees to follow-up this week. Discussed with patient: results, diagnosis, treatment plan, and need for follow-up. Return to the emergency department warnings were given. All questions and concerns were addressed. The plan is agreed with and understood. Patient is stable and ready for discharge. - Vital Signs Vital signs: Temp Pulse Resp BP Pulse Ox 98.6 F 66 18 162/64 H 100 09/22/20 21:54 09/22/20 21:54 09/22/20 21:54 09/22/20 21:54 09/22/20 21:54 - Diagnostic Test Radiology reviewed: Reports reviewed Procedures - Immobilization Left Finger Time completed: 01:15 Pre-Proc Neuro Vasc Exam: Normal Immobilizer type: Finger splint (Static) Performed by: RN Post-Proc Neuro Vasc Exam: Normal Alignment checked and good: Yes - Joint Reduction/Fracture Care Left 4th digit Time completed: 01:00 Consent obtained: Yes Conscious sedation: No Pre-procedure NV exam: Yes Post-procedure NV exam: Yes Post-reduction x-ray: Joint reduced, No fracture seen Reduction attempts: 1 Complications: No Discharge - Discharge Clinical Impression: Posttraumatic headache Qualifiers: Headache chronicity pattern: acute headache Intractability: not intractable Qualified Code(s): G44.319 - Acute post-traumatic headache, not intractable Finger dislocation Qualifiers: Encounter type: initial encounter Qualified Code(s): S63.259A - Unspecified dislocation of unspecified finger, initial encounter Condition: Stable Disposition: HOME, SELF-CARE Instructions: Finger Dislocation ([facility]) Referrals: Mis BARBA MD [Primary Care Provider] - Follow up as needed
[2020-09-23 01:36] VITALS: BP 154/68
--- NOTE | 2020-09-23 01:43 | RADIOLOGY REPORT (SQ) ---
EXAM: XR Left Fingers, 2 or More Views EXAM DATE/TIME: 09/23/2020 12:49 AM CLINICAL HISTORY: The patient is 85 years old and is Male; POST REDUCTION TECHNIQUE: Frontal, lateral and oblique views of the 4th digit of the left hand. COMPARISON: Radiographs of the left hand from 09/22/2020 at 11:00 PM FINDINGS: BONES/JOINTS: Interval reduction of the 4th proximal interphalangeal joint dislocation seen on the prior study. No dislocation on this exam. No obvious acute fracture. SOFT TISSUES: Mild soft tissue swelling of the 4th digit. IMPRESSION: Interval reduction of 4th PIP joint dislocation. No obvious acute fracture.
== END 2020-09-23 01:32 | disposition home or self-care (01) ==
LOC: ER 21:49
DX: S63.285A Dislocation of proximal interphalangeal joint of left ring finger, initial encounter (principal); G44.319 Acute post-traumatic headache, not intractable; W01.0XXA Fall on same level from slipping, tripping and stumbling without subsequent striking against object, initial encounter; I25.10 Atherosclerotic heart disease of native coronary artery without angina pectoris; I10 Essential (primary) hypertension; I25.2 Old myocardial infarction; E11.9 Type 2 diabetes mellitus without complications; Z95.5 Presence of coronary angioplasty implant and graft; Z87.891 Personal history of nicotine dependence; Z88.8 Allergy status to other drugs, medicaments and biological substances
CPT/HCPCS: 99284; 73140; 73130; 70450; 26770; J3490 ×2

== ENCOUNTER 2020-10-17 11:49 | Emergency (ER) | payer MEDICARE, OTHER ==
[2020-10-17 14:18] LABS: ABSOLUTE EOSINOPHILS # (AUTO) 0.8 10^3/uL (0.0-0.6); ABSOLUTE LYMPHOCYTES (AUTO) 1.2 10^3/uL (0.5-4.7); ABSOLUTE MONOCYTES (AUTO) 0.6 10^3/uL (0.1-1.4); ABSOLUTE NEUT (AUTO) 2.5 10^3/uL (1.7-8.2); BASOPHILS % (AUTO) 0.8 % (0-2); EOSINOPHILS % (AUTO) 16.3 % (0-6); HEMATOCRIT 31.6 % (37.9-51.0); HEMOGLOBIN 10.6 g/dL (13.5-17.0); MEAN CORPUSCULAR HEMOGLOBIN 30.4 pg (27.0-33.4); MEAN CORPUSCULAR HGB CONC 33.6 g/dL (32.0-36.0); MEAN CORPUSCULAR VOLUME 90 fl (80-97); MONOCYTES % (AUTO) 10.9 % (3-13); PLATELET COUNT 255 10^3/uL (150-450); RED CELL DISTRIBUTION WIDTH 13.5 % (11.5-14.0); TOTAL CELLS COUNTED % (AUTO) 100 %; WHITE BLOOD COUNT 5.2 10^3/uL (4.0-10.5)
[2020-10-17 14:28] LABS: ALBUMIN 3.7 g/dL (3.5-5.0); ALKALINE PHOSPHATASE 55 U/L (38-126); ANION GAP 7 (5-19); ASPARTATE AMINO TRANSFERASE 19 U/L (17-59); BILIRUBIN,DIRECT 0.2 mg/dL (0.0-0.4); BILIRUBIN,TOTAL 0.6 mg/dL (0.2-1.3); BLOOD UREA NITROGEN 20 mg/dL (7-20); CALCIUM 9.3 mg/dL (8.4-10.2); CARBON DIOXIDE 28 mmol/L (22-30); CHLORIDE 102 mmol/L (98-107); CREATINE KINASE 67 U/L (55-170); GLUCOSE 120 mg/dL (75-110); POTASSIUM 4.7 mmol/L (3.6-5.0); TOTAL PROTEIN 6.6 g/dL (6.3-8.2)
[2020-10-17 14:38] LABS: CREATINE KINASE MB 1.44 ng/mL (<4.55)
[2020-10-17 14:41] LABS: TROPONIN I < 0.012 ng/mL
--- NOTE | 2020-10-17 15:48 | EKG REPORT ---
SEVERITY:- ABNORMAL ECG - SINUS BRADYCARDIA BORDERLINE T WAVE ABNORMALITIES ANT-LAT LEADS : Confirmed by: Alli Franklin MD 17-Oct-2020 15:47:24
[2020-10-17] MEDS ORDERED: NORMAL SALINE 1000 ML 1,000 ML IV ONE (16:11)
--- NOTE | 2020-10-17 16:16 | ER Document Report ---
ED General - General Chief Complaint: Low Blood Pressure Stated Complaint: HYPOTENSION Time Seen by Provider: 10/17/20 15:08 Mode of Arrival: Medic Information source: Patient Notes: 85-year-old man presents to the emergency department a history of apparently got up to use the bathroom this morning and then became very weak and lightheaded and passed out. According to the he was sitting on the chair at the end of the bed slumped over and unresponsive for approximately 15 minutes EMS was called to the home the patient was then transported to the hospital. Patient states that he has no election of events he does not remember getting out of the bed and does not remember the ambulance crew coming to the home. Was aware of being transported and also aware when he got to the hospital. The states that when they brought him out into the cold at the hospital he became more chandu rt. Presently he denies chest pain shortness of breath or dizziness. He does complain of pain in the back of his head and in his neck. He complained of neck pain at home prior to the episode. Of note he had a fall in December, requires neurosurgical intervention for intracranial hemorrhage. TRAVEL OUTSIDE OF THE [place] IN LAST 30 DAYS: No - Related Data Allergies/Adverse Reactions: amiodarone [Amiodarone] Allergy (Severe, Verified 09/22/20 22:24) flashbacks Home Medications: Amlodipine, Aspirin, Atorvastatin, Citalopram, Clopidogrel, Ezetimibe, Iron, Finasteride, Folic Acid, Lasix, Metformin, Metoprolol, Potassium. 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, Hx Hypercholesterolemia, Hx Hypertension Endocrine Medical History: Reports: Hx Diabetes Mellitus Type 1, Hx Diabetes Mellitus Type 2 Renal/ Medical History: Denies: Hx Peritoneal Dialysis Psychiatric Medical History: Reports: Hx Depression Past Surgical History: Reports: Hx Abdominal Surgery - hernia, Hx Cardiac Madelyn terization - stents, Hx Cardiac Surgery - bypass, Hx Coronary Artery Bypass Graft - Immunizations Immunizations up to date: Yes Hx Diphtheria, Pertussis, Tetanus Vaccination: Yes Hx Pneumococcal Vaccination: 07/23/13 Review of Systems - Review of Systems Notes: Constitutional: Negative for fever. HENT: Negative for sore throat. Eyes: Negative for visual changes. Cardiovascular: Negative for chest pain. Respiratory: Negative for shortness of breath. Gastrointestinal: Negative for abdominal pain, vomiting or diarrhea. Genitourinary: Negative for dysuria. Musculoskeletal: Negative for back pain. Skin: Negative for rash. Neurological: See HPI. 10 point ROS negative except as marked above and in HPI. Physical Exam - Vital signs Vitals: Resp Pulse Ox 19 98 10/17/20 11:55 10/17/20 11:55 - Notes Notes: PHYSICAL EXAMINATION: Physical Exam: General: Well-nourished well-developed elderly male in no acute distress HEENT: NC/AT, pupils equal round and reactive to light, MM moist,nares clear, oropharynx clear, airway patent Neck: supple, no adenopathy, no masses. Good range of motion Lungs: clear, no wheezing, no rales no rhonchi CVS: Regular rate and rhythm no murmur gallop or rub Abdomen: Soft, active, nontender, no masses, no hepatosplenomegaly Ext: No edema, clubbing or cyanosis. Neuro: Alert and responsive, moving all 4 extremities on command, cranial nerves intact, no focal findings Skin: Intact no open lesions, no rash . Course - Re-evaluation Re-evalutation: 10/17/20 19:50 Patient is feeling much better, he was given a liter of saline and his blood pressure has also proved. Is unclear whether he was hypotensive from volume depletion. The notes that he has poor water drinker and she has been pushing him to drink fluids. Also this episode began after he urinated which suggestive of a mictrition vasovagal episode. His CT scan of the head, chest x- ray and laboratory data was nondiagnostic there is a small area on the left suggestive of a possible groundglass appearing infiltrate. Patient has had no cough, no fever, and a negative coronavirus test via EMS today. I discussed these findings with the and the patient and have noted to them that they can monitor him closely for any changes. If he begins develops coughing shortness of breath or - Vital Signs Vital signs: Temp Pulse Resp BP Pulse Ox 97.7 F 62 13 100/78 100 10/17/20 12:14 10/17/20 12:14 10/17/20 20:00 10/17/20 19:00 10/17/20 20:00 - Laboratory Results Result Diagrams: 10/17/20 12:00 10/17/20 12:00 Laboratory Results Interpreted: 10/17/20 10/17/20 10/17/20 12:00 12:00 15:30 RBC 3.50 L Hgb 10.6 L Hct 31.6 L Eos % (Auto) 16.3 H Absolute Eos (auto) 0.8 H Creatinine 1.45 H Est GFR ( Amer) 56 L Est GFR (MDRD) Non-Af 46 L Glucose 120 H Urine Protein 30 H Critical Laboratory Results Reviewed: No Critical Results - Radiology Results Radiology Results Interpreted: 10/18/20 17:49 Chest X-Ray 10/17/20 16:13 IMPRESSION: Low lung volumes. No discrete radiographic evidence of acute cardiopulmonary abnormality. Head CT 10/17/20 16:14 IMPRESSION: 1. No acute intracranial hemorrhage, mass, or evidence of acute territorial infarct. 2. Mild chronic small vessel ischemic change. Intracranial atherosclerosis. EVIDENCE OF ACUTE STROKE: NO. Cervical Spine CT 10/17/20 16:17 IMPRESSION: 1. No acute fracture or dislocation of the cervical spine. 2. Degenerative disc disease, spondylosis and facet arthropathy. 3. Ill-defined ground-glass attenuation in the left upper lobe which could be seen with infectious/inflammatory process. Findings have been described in relation to COVID 19 pneumonia. Critical Radiology Results Reviewed: No Critical Results - EKG Interpretation by Ak Rate: Bradycardia - EKG interpreted by Dr. Wray: N sinus bradycardia, rate 58, OR interval 18 ms QT interval 444 ms, normal axis, T wave abnormality, anterior lateral, no ischemic findings, compared to EKG dated 02/27/2020, no significant change. Interpretation: Abnormal EKG Discharge - Discharge Clinical Impression: Weakness Syncope Qualifiers: Syncope type: vasovagal syncope Qualified Code(s): R55 - Syncope and collapse Condition: Good Disposition: HOME, SELF-CARE Instructions: Dehydration ([facility]), Vasovagal Symptoms ([facility]) Additional Instructions: You are seen in the emergency department today with an episode of passing out. It is likely that it is related to poor volume intake of fluids. Please increase your water intake. Monitor your water intake closely. Follow-up with your doctor as needed return to the emergency department if your symptoms are or if you have other concerns. HOME CARE INSTRUCTIONS & INFORMATION: Thank you for choosing us for your medical needs. We hope you're satisfied with the care you received. After you leave, you must properly care for your problem and, at the same time, observe its progress. Any condition can change. Some illnesses can change rapidly over hours or days. If your condition worsens, return to the Emergency Department or see your physician promptly. ABOUT YOUR X-RAYS AND EKG'S: If you had an EKG or X-rays taken, they have been read by the Emergency Physician. The X-rays and EKG's will also be read by a Radiologist or Plater Supervisor within 24 hours. If discrepancies are noted, you will be notified by telephone. Please be certain the ED has a correct telephone number & address where you can be reached. Also, realize that some fractures or abnormalities do not show up on initial X-rays. If your symptoms continue, see your physician. ABOUT YOUR LABORATORY TEST: If you had laboratory tests, the results have been reviewed by the Emergency Physician. Some test results (for example cultures) may not be available for several days. You will be contacted if any test result shows you need additional treatment. Please be certain the ED has a correct telephone number and address where you can be reached. ABOUT YOUR MEDICATIONS: You will receive instructions on how to take your medicine on the prescription label you receive. Additional information may be provided by the Pharmacy. If you have questions afterwards, call the ED for clarification or further instructions. Some prescribed medications may cause drowsiness. Do not perform tasks such as driving a car or operating machinery without consulting your Pharmacist. If you feel you need a refill of pain medication, your condition will need re-evaluation. Please do not call for a refill of any medication. ABOUT YOUR SIGNATURE: Signature of this document acknowledges to followin. Understanding that you received emergency treatment and that you may be released before al medical problems are known or treated. Please be certain the ED has a correct phone number & address where you can be reached. 2. Acknowledgement that you will arrange for follow-up care as recommended. 3. Authorization for the Emergency Physician to provide information to your follow-up Physician in order to maximize your care. AT ANY TIME, IF YOUR SYMPTOMS CHANGE SIGNIFICANTLY OR WORSEN OR YOU DEVELOP NEW SYMPTOMS, RETURN TO THE EMERGENCY DEPARTMENT IMMEDIATELY FOR RE-EVALUATION. OUR GOAL IS TO PROVIDE EXCELLENT MEDICAL CARE! WE HOPE THAT WE HAVE MET YOUR EXPECTATIONS DURING YOUR EMERGENCY DEPARTMENT VISIT AND THAT YOU FEEL YOU HAVE RECEIVED EXCELLENT CARE!
[2020-10-17] MEDS ORDERED: ACETAMINOPHEN 325 MG TABLET PO ONE (16:18)
--- NOTE | 2020-10-17 16:41 | RADIOLOGY REPORT (SQ) ---
EXAM DESCRIPTION: CHEST SINGLE VIEW IMAGES COMPLETED DATE/TIME: 10/17/2020 4:32 pm REASON FOR STUDY: Shortness of breath COMPARISON: 02/27/2020 EXAM PARAMETERS: NUMBER OF VIEWS: One view. TECHNIQUE: Single frontal radiographic view of the chest acquired. RADIATION DOSE: NA LIMITATIONS: None. FINDINGS: LUNGS AND PLEURA: Low lung volumes with resultant bronchovascular crowding. No focal cons olidation, pleural effusion, or pneumothorax. MEDIASTINUM AND HILAR STRUCTURES: No masses. Contour normal. HEART AND VASCULAR STRUCTURES: Heart normal in size. Normal vasculature. BONES: No acute findings. HARDWARE: Cardiac loop recorder, stable. Midline surgical changes, stable. OTHER: No other significant finding. IMPRESSION: Low lung volumes. No discrete radiographic evidence of acute cardiopulmonary abnormalit y. TECHNICAL DOCUMENTATION: JOB ID: [id number] 2010 [email or web address]- All Rights Reserved Reading location - IP/workstation name: [email or web address]
--- NOTE | 2020-10-17 17:14 | RADIOLOGY REPORT (SQ) ---
EXAM DESCRIPTION: CT HEAD WITHOUT IMAGES COMPLETED DATE/TIME: 10/17/2020 3:45 pm REASON FOR STUDY: Loss of consciousnes. S COMPARISON: 09/22/2020 TECHNIQUE: Axial images acquired through the brain without intravenous contrast. Images reviewed wi th bone, brain and subdural windows. Additional sagittal and coronal reconstructions were generated. Images stored on PACS. All CT scanners at this facility use dose modulation, iterative reconstruction, and/or weight based d osing when appropriate to reduce radiation dose to as low as reasonably achievable (ALARA). [facility]: Dose Right [facility]: CareDose [facility]: Dose Right [facility]: Teradose 4D [facility]: Smart Skipo RADIATION DOSE: CT Rad equipment meets quality standard of care and radiation dose reduction techniq ues were employed. CTDIvol: 49.0 mGy. DLP: 960 mGy-cm. mGy. LIMITATIONS: None. FINDINGS: VENTRICLES: Normal size and contour. CEREBRUM: No masses. No hemorrhage. No midline shift. No evidence for acute infarction. Normal gra y-white matter differentiation. Mild patchy periventricular and deep white matter hypodense attenuat ion consistent with mild chronic small vessel ischemic change. There is intracranial atherosclerosis . Physiologic calcification of the basal ganglia bilaterally. CEREBELLUM: No masses. No hemorrhage. No alteration of density. No evidence for acute infarction. EXTRAAXIAL SPACES: No fluid collections. No masses. ORBITS AND GLOBE: No intra- or extraconal masses. Normal contour of globe without masses. CALVARIUM: No fracture. PARANASAL SINUSES: No fluid or mucosal thickening. SOFT TISSUES: No mass or hematoma. OTHER: No other significant finding. IMPRESSION: 1. No acute intracranial hemorrhage, mass, or evidence of acute territorial infarct. 2. Mild chronic small vessel ischemic change. Intracranial atherosclerosis. EVIDENCE OF ACUTE STROKE: NO. COMMENT: Quality ID # 436: Final reports with documentation of one or more dose reduction techniques (e.g., Automated exposure control, adjustment of the mA and/or kV according to patient size, use of iterative reconstruction technique) TECHNICAL DOCUMENTATION: JOB ID: [id number] 2010 [employer]- All Rights Reserved Reading location - IP/workstation name: [email or web address]
--- NOTE | 2020-10-17 17:18 | RADIOLOGY REPORT (SQ) ---
EXAM DESCRIPTION: CT CERVICAL SPINE WITHOUT IMAGES COMPLETED DATE/TIME: 10/17/2020 3:45 pm REASON FOR STUDY: Neck pain. COMPARISON: 12/19/2019 TECHNIQUE: Axial images acquired through the cervical spine without intravenous contrast. Images re viewed with lung, soft tissue and bone windows. Reconstructed coronal and sagittal MPR images review ed. Images stored on PACS. All CT scanners at this facility use dose modulation, iterative reconstruction, and/or weight based d osing when appropriate to reduce radiation dose to as low as reasonably achievable (ALARA). [facility]: Dose Right [facility]: CareDose [facility]: Dose Right [facility]: Teradose 4D [facility]: Smart [employer] Data RADIATION DOSE: CT Rad equipment meets quality standard of care and radiation dose reduction techniq ues were employed. CTDIvol: 22.2 mGy. DLP: 596 mGy-cm. mGy. LIMITATIONS: None. FINDINGS: ALIGNMENT: Straightening of the normal cervical lordosis secondary to chronic degenerative change. MINERALIZATION: Normal. VERTEBRAL BODIES: No acute fracture or loss of vertebral body height. Marginal osteophytes, subchond ral sclerosis and cystic change. No lytic or blastic bone lesion. DISCS: Multilevel degenerative disc disease with loss of intervertebral disc height and vacuum disc p henomenon. FACETS, LATERAL MASSES, POSTERIOR ELEMENTS: No fractures. No dislocation. Facet arthropathy. No ac [place] findings. HARDWARE: None in the spine. VISUALIZED RIBS: No fractures. LUNG APICES AND SOFT TISSUES: Patchy areas of ground-glass attenuation in the left upper lobe. Backg round mild pulmonary emphysema. OTHER: No other significant finding. IMPRESSION: 1. No acute fracture or dislocation of the cervical spine. 2. Degenerative disc disease, spondylosis and facet arthropathy. 3. Ill-defined ground-glass attenuation in the left upper lobe which could be seen with infectious/in flammatory process. Findings have been described in relation to COVID 19 pneumonia. TECHNICAL DOCUMENTATION: JOB ID: [id number] Quality ID # [id number]: Final reports with documentation of one or more dose reduction techniques (e.g., Au tomated exposure control, adjustment of the mA and/or kV according to patient size, use of iterative reconstruction technique) 2010 [employer]- All Rights Reserved Reading location - IP/workstation name: [email or web address]
[2020-10-17 17:36] LABS: APPEARANCE,URINE CLEAR; BILIRUBIN,URINE NEGATIVE (NEGATIVE); COLOR,URINE STRAW; GLUCOSE, URINE NEGATIVE (NEGATIVE); KETONES,URINE NEGATIVE (NEGATIVE); PROTEIN,URINE 30 mg/dL (NEGATIVE); UROBILINOGEN,URINE NEGATIVE mg/dL (<2.0)
[2020-10-17 19:31] VITALS: BP 100/78
== END 2020-10-17 20:10 | disposition home or self-care (01) ==
LOC: ER 11:49
DX: R55 Syncope and collapse (principal); R53.1 Weakness; I95.9 Hypotension, unspecified; R42 Dizziness and giddiness; R51.9 Headache, unspecified; M54.2 Cervicalgia; Z88.8 Allergy status to other drugs, medicaments and biological substances; Z79.899 Other long term (current) drug therapy; Z79.82 Long term (current) use of aspirin; I25.10 Atherosclerotic heart disease of native coronary artery without angina pectoris; I25.2 Old myocardial infarction; I11.0 Hypertensive heart disease with heart failure; E11.9 Type 2 diabetes mellitus without complications
CPT/HCPCS: 93005; 99285; 96360; 36415; 82553; 82962; 82550; 85025; 80053; 81001; 84484; 71045; 70450; 72125; 93010; A9270; J7030